=== PATIENT | female | born 1960 | race Caucasian/White ===

== ENCOUNTER 2023-02-09 15:37 | Inpatient (IN) | payer OTHER, SELFPAY ==
[2023-02-09] VITALS (12 sets, daily range): BP systolic 121–147; BP diastolic 63–88; PULSE 89–106; RESP 16–29; TEMP 37; O2SAT 93–100
--- NOTE | ~2023-02-09 | CT_ITS ---
EXAMINATION: CTA chest PE protocol DATE: 02/11/2023 11:42 CDT INDICATION: Dyspnea. Pulmonary nodules. TECHNIQUE: Computed tomographic angiography (CTA) of the chest was performed with 100 mL Omnipaque-35 0 intravenous contrast. The dose-length product was 315.46 mGy-cm. Maximum intensity projection 3D-re constructions of the aorta and other arteries were constructed by the technologist on a separate work station. COMPARISON: CT dated 02/11/2023. FINDINGS: There is mediastinal and bilateral hilar lymphadenopathy. No significant pleural or pericar dial effusion. There is a right lower lobe mass with peripheral air bronchograms measuring 3.5 x 2.2 cm, suspicious for bronchogenic carcinoma. There is a combination of emphysema and chronic interstiti al lung disease characterized by honeycombing, traction bronchiectasis, interlobular septal thickenin g and extensive patchy groundglass opacification. No endobronchial lesions. Study is technically adequate without evidence for pulmonary embolism. There is a 7 mm right upper lo be nodule, image 30. No pneumothorax. No endobronchial lesions. IMPRESSION: 1. No evidence for pulmonary embolism. 2: Right lower lobe mass measuring 3.5 x 2.2 cm, consistent with bronchogenic carcinoma until proven otherwise. Additional 7 mm right upper lobe nodule. 3: Mediastinal and hilar lymphadenopathy which may be reactive or metastatic disease. 4: Combination of emphysema and chronic chronic interstitial lung disease. Cannot exclude acute super imposed pneumonia. Reviewed, dictated and finalized at location L. IMPRESSION: 1. No evidence for pulmonary embolism. 2: Right lower lobe mass measuring 3.5 x 2.2 cm, consistent with bronchogenic c arcinoma until proven otherwise. Additional 7 mm right upper lobe nodule. 3: Mediastinal and hilar lymphadenopathy which may be reactive or metastatic di sease. 4: Combination of emphysema and chronic chronic interstitial lung disease. Pancho ot exclude acute superimposed pneumonia.
--- NOTE | ~2023-02-09 | XR_ITS ---
EXAMINATION: XR chest 1V portable Exam Date/Time: 02/09/2023 17:00 CDT HISTORY: Shortness of breath Comparison: 10/03/2007. RESULT: Lines, tubes, and devices: None. Lungs and pleura: Patchy bilateral segmental and subsegmental groundglass opacities. Increased, mode rate diffuse reticular opacities. Multiple new nodular opacities bilaterally, best seen in the left l ower lobe. Cardiomediastinal silhouette: Stable. Other: No acute osseous or upper abdominal finding. IMPRESSION: Diffuse and bilateral pulmonary opacities may represent edema or infection, overlying progressive int erstitial changes. Multiple pulmonary nodules, concerning for metastatic disease. Reviewed, dictated and finalized at location K. IMPRESSION: Diffuse and bilateral pulmonary opacities may represent edema or infection, ove rlying progressive interstitial changes. Multiple pulmonary nodules, concerning for metastatic disease.
--- NOTE | ~2023-02-09 | US_ITS ---
EXAMINATION: US venous doppler UE DATE: 02/11/2023 12:10 INDICATION: History of smoking. Evaluate for DVT. TECHNIQUE: Oquendo scale images with and without compression and Doppler images of the right and left up per extremity veins were obtained. COMPARISON: None. FINDINGS: The bilateral internal jugular vein, subclavian vein, axillary vein, brachial veins, basilic vein, ce phalic vein, radial vein, and ulnar vein are patent. IMPRESSION: 1. Patent bilateral upper extremity veins. No evidence of deep venous thrombosis. Reviewed, dictated and finalized at location L. IMPRESSION: 1. Patent bilateral upper extremity veins. No evidence of deep venous thrombosi s.
--- NOTE | ~2023-02-09 | CT_ITS ---
CT Scan of the Chest without Contrast: Clinical Indication: Pulmonary nodules on chest x-ray Technique: Contiguous sections were acquired throughout the chest without intravenous contrast. Dose reduction technique was used on this scan by utilizing automated exposure control and iterative recon struction technique. The dose-length product (DLP) was 167.74 mGy-cm. COMPARISON: 12/07/2008 Findings: Shotty mediastinal lymph nodes not frankly enlarged by size criteria. No aortic aneurysm. There is no evidence of pleural or pericardial effusion. There is extensive interstitial thickening and extensive patchy groundglass opacity throughout most o f both lungs. Findings are most consistent with diffuse chronic interstitial disease. There is a 2.9 x 2.0 cm nodular masslike lesion at the right lung base (axial image 78). Images through the upper abdomen reveal no abnormalities. Impression: 2.9 x 2.0 cm right basilar pulmonary nodule, suspicious for malignancy until proven otherwise. Tissue sampling recommended to establish a histologic diagnosis. Diffuse chronic interstitial disease with interstitial thickening, bronchiectatic change, and extensi ve groundglass opacity. Findings are probably most suggestive of NSIP. Findings are significantly pro gressed since prior exam from 2008. Reviewed, dictated and finalized at location M. Impression: 2.9 x 2.0 cm right basilar pulmonary nodule, suspicious for malignancy until pr oven otherwise. Tissue sampling recommended to establish a histologic diagnosis . Diffuse chronic interstitial disease with interstitial thickening, bronchiectat ic change, and extensive groundglass opacity. Findings are probably most sugges tive of NSIP. Findings are significantly progressed since prior exam from 2008.
--- NOTE | ~2023-02-09 | US_ITS ---
EXAMINATION:US venous doppler LE BI INDICATION:Evaluate for DVT. TECHNIQUE: Multiple grayscale, color flow and Doppler images of the right and left lower extremity de ep venous systems were obtained and reviewed. COMPARISON:No prior studies for comparison. FINDINGS: The common femoral, superficial femoral and popliteal veins demonstrate normal respiratory variation, augmentation and compressibility. Color flow is also seen within the posterior tibial, pe roneal, greater saphenous and profunda veins. IMPRESSION: 1: No lower extremity deep venous thrombosis. Reviewed, dictated and finalized at location L.
--- NOTE | 2023-02-09 15:49 | ECG_ITS ---
Measurements Intervals [place] Rate: 101 P: 32 MA: 170 QRS: -18 QRSD: 85 T: 31 QT: 339 QTc: 440 Interpretive Statements SINUS TACHYCARDIA DELAYED PRECORDIAL R/S TRANSITION VOLTAGE CRITERIA FOR LVH BASELINE WANDER- I, II, AVR, V4-V5 BORDERLINE ECG NO PREVIOUS ECG AVAILABLE FOR COMPARISON Electronically Signed On 02-10-2023 7:51:35 CDT by Tonio Mario D.O.
[2023-02-09] MEDS: IPRATROPIUM BR 0.02% INH SOLN 0.5 MG/2.5 ML VIAL INHALATION (16:52)
[2023-02-09] MEDS: LEVALBUTEROL NEB 1.25 MG/3 ML INHALATION (16:52)
--- NOTE | 2023-02-09 16:52 | ED.SOB ---
HPI - SOB/Dyspnea General Chief Complaint: Shortness of Breath/Dyspnea Stated Complaint: resp. distress History of Present Illness HPI Narrative: This is a 62-year-old female with reported history of COPD, who presents to the emergency department with shortness of breath. She states over the last week she has developed progressive dyspnea on exertion. She denies chest pain, fevers, cough or abdominal pain. Related Data Home Medications Medication Instructions Recorded Confirmed cholecalciferol (vitamin D3) 25 1,000 unit PO DAILY 11/12/19 11/11/21 mcg (1,000 unit) capsule Allergies Allergy/AdvReac Type Severity Reaction Status Date / Time guaifenesin Allergy Mild ITCHING Verified 12/02/22 13:15 levofloxacin Allergy Unknown unknown Verified 12/02/22 13:15 Quinolones Allergy Unknown unknown Verified 12/02/22 13:15 Review of Systems Review of Systems: CONSTITUTIONAL: Denies fever, chills, or sweats. ENT: Denies rhinorrhea, congestion, sore throat, or otalgia. CARDIOVASCULAR: Denies chest pain, palpitations, or edema. RESPIRATORY: Dyspnea on exertion denies cough, orthopnea. GASTROINTESTINAL: Denies abdominal pain, nausea, vomiting, or diarrhea. GENITOURINARY: Denies dysuria or hematuria. SKIN: Denies rash or itching. MUSCULOSKELETAL: Denies back pain, joint pain, or myalgia. NEUROLOGIC: Denies headache, numbness, dizziness, or weakness. PSYCHIATRIC: Denies anxiety or depression. PMFSH Past Medical History Medical History Abnormal mammogram Body mass index [BMI] 22.0-22.9, adult (01/09/16) Bronchitis Chronic cough HLD (hyperlipidemia) Other dorsalgia Personal history of nicotine dependence Unspecified asthma, uncomplicated URI, acute Vitamin D deficiency Family History Family History Mother Hypertension Asthma Social History Social History Smoking status: Never smoker Alcohol intake: never Exam Narrative: GENERAL: Well-developed, well-nourished, and in no acute distress. HEAD: Normocephalic, atraumatic. EYES: PERRLA and EOMI. ENT: Nares clear, no rhinorrhea or epistaxis. Mucous membranes moist. Oropharynx without tonsillar hypertrophy exudate or other lesions. NECK: Supple. No adenopathy or masses. No carotid bruits or JVD CHEST: Good aeration, Rales in the bilateral lung pat, the right greater than the left. No respiratory distress. No wheezes or rhonchi HEART: Tachycardic with regular rhythm. No murmur heard. Normal peripheral pulses. ABDOMEN: Soft, nontender, nondistended, normal active bowel sounds. EXTREMITIES: Normal range of motion. No edema. SKIN: Warm, dry, no rash. NEURO: No focal deficits. Alert and oriented x3. PSYCH: Normal mood and affect. Course Course Emergency Course: 16:41 - Orders delayed by EMR system failure. 17:15 - Chest x-ray consistent with pulmonary edema. Bedside ultrasound demonstrates B-lines consistent with pulmonary edema. I discussed these findings with the patient. I suspect her dyspnea on exertion is related to new onset CHF. I recommended inpatient admission, to which she voices hesitation. Will trial off oxygen and discuss further. 17:48 - Per radiology, chest x-ray is indicative of pulmonary edema versus pulmonary nodules concerning for malignancy. BNP elevated to 718. With 2 L off, the patient desatted to 85% at rest. I again discussed these findings with the patient with recommendation for admission. She voices understanding and is comfortable with the plan. Will treat with IV Lasix. 18:30 - Discsused patient with Road Roller Engineer, Dr. Owens who agrees to consult. 18:45 -Discussed patient with hospitalist ENRIKE Lobato, who accepts admission to [facility] telemetry. Vital Signs Vital signs: Vital Signs Temperature 98.6 F 02/09/23 15:34 Pulse Rate 105 H 02/09/23 15:34 Res
[2023-02-09 17:00] LABS: Basophils Absolute Auto 0.1 K/mm3 (0.0-0.1); Basophils Percent Auto 0.5 % (0.2-1.2); Eosinophils Absolute Auto 0.2 K/mm3 (0-0.3); Eosinophils Percent Auto 2.2 % (0-4.4); Hematocrit 38.3 % (37.0-47.0); Immature Granulocyte Absolute 0.04 K/mm3 (0.00-0.031); Immature Granulocyte Percent A 0.4 % (0-0.5); Lymphocytes Absolute Auto 0.93 K/mm3 (0.9-3.2); Lymphocytes Percent Auto 9.1 % (18.3-44.2); Mean Corpuscular HGB Conc 31.3 g/dl (32-36); Mean Corpuscular Hemoglobin 27.8 pg (26-34); Mean Corpuscular Volume 88.9 fl (80-100); Mean Platelet Volume 9.8 fl (7.4-10.4); Monocytes Absolute Auto 0.5 K/mm3 (0.1-0.6); Monocytes Percent Auto 4.6 % (2.6-8.5); Neutrophils Absolute Auto 8.5 K/mm3 (1.3-6.7); Neutrophils Percent Auto 83.2 % (45.5-73.1); Platelet Count Result 380 k/mm3 (150-375); Red Blood Count 4.31 M/mm3 (4.2-5.4); Red Cell Distribution Width 14.6 % (11.5-14.5); White Blood Count 10.3 K/mm3 (4.5-10.0)
[2023-02-09 17:01] LABS: INR 1.1; Prothrombin Time 14.7 Seconds (11.1-14.7)
[2023-02-09 17:12] LABS: Alanine Aminotransferase 19 U/L (6-35); Alkaline Phosphatase 136 U/L (38-126); Anion Gap 10 mmol/L (8-16); Aspartate Amino Transferase 29 U/L (14-36); Bilirubin,Total 0.8 mg/dL (0.2-1.3); Blood Urea Nitrogen 12 mg/dL (7-17); Calcium 8.4 mg/dL (8.4-10.2); Carbon Dioxide 27 mmol/L (22-30); Chloride 99 mmol/L (98-107); Estimated CRCL calculation 50 ml/min; Estimated Glomerular Filt Rate > 60; Glucose 156 mg/dL (65-110); Potassium 3.3 mmol/L (3.4-5.0); Sodium 136 mmol/L (137-145); Troponin I 0.016 ng/mL (0.000-0.034)
[2023-02-09 17:43] LABS: NT Pro B Type Natriuretic Pept 718 pg/mL (19.9-100)
[2023-02-09] MEDS: POTASSIUM CHLORIDE 20 MEQ PACKET (FOR LIQUID) 40 MEQ PO (18:06)
[2023-02-09] MEDS: FUROSEMIDE INJ 40 MG/4 ML VIAL IV PUSH (18:07)
[2023-02-09 19:06] LABS: Fractional Inspired Oxygen 21 %; HCO3 VBG 19.8 mEq/l (24.0-30.0); PO2 VBG 56.2 mmHg (35.0-45.0)
[2023-02-09 19:07] LABS: PCO2 VBG 24.4 mmHg (42.0-48.0); pH VBG 7.527 (7.300-7.400)
[2023-02-09 19:08] LABS: Device ROOM AIR
[2023-02-10] VITALS (10 sets, daily range): BP systolic 128–137; BP diastolic 68–78; PULSE 63–108; RESP 18; TEMP 36.6–37.1; O2SAT 90–96
--- NOTE | 2023-02-10 | ECHO_ITS ---
Patient Info Name: Mi Jeffers Age: 62 years : 1960 Gender: Female Ht: 60 in Wt: 125 lbs BSA: 1.56 m2 HR: 63 bpm BP: 128 / 68 mmHg Heart Rhythm: Sinus Rhythm Technical Quality: Fair Exam Date: 02/10/2023 9:24 AM Exam Location: [facility] Patient Status: Inpatient Admit Date: 02/09/2023 Staff Ordering Physician: Jaci Rahman PA-C Cash Posting Clerk: Chantel Ba RDCS Attending Provider: Rema Baker PA-C Referring Physician: Lacey NG; Exam Type: CA echo doppler w bubble study Study Info Indications - CHF Complete two-dimensional, color flow and Doppler transthoracic echocardiogram is performed with agitated saline. Contrast/Agitated Saline Contrast/Ag. Saline: Agitated Saline Amount: 20.00 ml Administered By: Adamaris Andrews RDCS Existing IV Access: Yes IV Access Condition: patent with no signs of infiltration Summary 1. Left ventricular chamber dimension is normal. 2. Left ventricular systolic function is normal, estimated at 60-65%. 3. There is mildly increased left ventricular wall thickness. 4. The left ventricular diastolic function is grade I diastolic dysfunction. 5. Right ventricular systolic function is normal. 6. Bubble study shows a few bubbles in the left heart after 5 cardiac beats, indicating possible intrapulmonary shunt. 7. There is mild tricuspid valve regurgitation. Left Ventricle Left ventricular chamber dimension is normal. Left ventricular systolic function is normal, estimated at 60-65%. There is mildly increased left ventricular wall thickness. The left ventricular diastolic function is grade I diastolic dysfunction. Right Ventricle Right ventricular chamber dimension is normal. Right ventricular systolic function is normal. Left Atria Left atrial chamber dimension is normal. Right Atria Right atrial chamber dimension is normal. Atrial Septum Bubble study shows a few bubbles in the left heart after 5 cardiac beats, indicating possible intrapulmonary shunt. Aortic Valve The aortic valve is trileaflet. There is no aortic valve stenosis. There is no aortic valve regurgitation. Pulmonic Valve The pulmonic valve is not well visualized. There is mild pulmonic regurgitation. Mitral Valve The mitral valve has normal leaflets. There is no mitral valve stenosis. There is trace mitral valve regurgitation. Tricuspid Valve There is mild tricuspid valve regurgitation. Pericardium/Pleural There is no pericardial effusion. Inferior Vena Cava Normal inferior vena cava with >50% collapse upon inspiration consistent with normal right atrial pressure, 3 mmHg. Aorta The aortic root size at the sinus of Valsalva is normal. Left Ventricular Outflow Tract Name Value Normal LVOT 2D LVOT Diameter 2.0 cm LVOT Doppler LVOT Peak Gradient 3 mmHg LVOT Mean Gradient 1 mmHg LVOT VTI 16 cm LVOT VTI/AV VTI Ratio 0.7 LVOT Stroke Volume 49 ml LVOT CO 3.5 l/min LVOT CI 2.2 l/m
--- NOTE | 2023-02-10 06:38 | PC.NURSE ---
0010 PT ADMITTED TO FLOOR. COMPUTER DOWNTIME UNTIL 0615
[2023-02-10 06:43] LABS: Basophils Percent Auto 0.2 % (0.2-1.2); Hematocrit 40.4 % (37.0-47.0); Hemoglobin 12.6 g/dL (12.0-15.0); Immature Granulocyte Absolute 0.05 K/mm3 (0.00-0.031); Immature Granulocyte Percent A 0.6 % (0-0.5); Lymphocytes Absolute Auto 0.88 K/mm3 (0.9-3.2); Lymphocytes Percent Auto 10.6 % (18.3-44.2); Mean Corpuscular HGB Conc 31.2 g/dl (32-36); Mean Corpuscular Hemoglobin 27.5 pg (26-34); Mean Corpuscular Volume 88.2 fl (80-100); Mean Platelet Volume 10.1 fl (7.4-10.4); Monocytes Absolute Auto 0.4 K/mm3 (0.1-0.6); Monocytes Percent Auto 4.6 % (2.6-8.5); Platelet Count Result 450 k/mm3 (150-375); Red Blood Count 4.58 M/mm3 (4.2-5.4); Red Cell Distribution Width 14.6 % (11.5-14.5); White Blood Count 8.3 K/mm3 (4.5-10.0)
[2023-02-10 07:11] LABS: Alanine Aminotransferase 19 U/L (6-35); Albumin Level 4.4 g/dL (3.5-5.1); Alkaline Phosphatase 145 U/L (38-126); Anion Gap 8 mmol/L (8-16); Aspartate Amino Transferase 28 U/L (14-36); Bilirubin,Total 0.7 mg/dL (0.2-1.3); Blood Urea Nitrogen 16 mg/dL (7-17); CRP 22.5 mg/dL (<1.0); Calcium 9.1 mg/dL (8.4-10.2); Carbon Dioxide 32 mmol/L (22-30); Chloride 99 mmol/L (98-107); Cholesterol 155 mg/dL (0-200); Estimated CRCL calculation 50 ml/min; Estimated Glomerular Filt Rate > 60; Glucose 163 mg/dL (65-110); HDL Direct 38 mg/dL; Magnesium 2.9 mg/dL (1.6-2.3); Potassium 4.3 mmol/L (3.4-5.0); Procalcitonin 0.4 ng/mL; Sodium 139 mmol/L (137-145); Triglycerides 93 mg/dL (<150)
[2023-02-10] MEDS: FUROSEMIDE INJ 40 MG/4 ML VIAL 20 MG IV PUSH ×2 (07:18→17:08)
[2023-02-10 07:36] LABS: LDL Cholesterol Direct 88 mg/dL
[2023-02-10] MEDS: ENOXAPARIN 40 MG/0.4 ML SYRINGE SUB-Q (07:44)
[2023-02-10 07:54] LABS: Thyroid Stimulating Hormone 0.742 uIU/mL (0.465-4.680)
[2023-02-10] MEDS: CHOLECALCIFEROL 1,000 UNITS TABLET 1000 UNITS PO (09:15)
[2023-02-10 09:26] LABS: Troponin I < 0.012 ng/mL (0.000-0.034)
--- NOTE | 2023-02-10 09:35 | PM.CNCAR ---
Assessment and Plan Assessment and plan (1) New onset of congestive heart failure: Code(s): I50.9 - Heart failure, unspecified Status: Acute Assessment and Plan: Has heart failure symptoms. Continue with intermittent IV Lasix for now. Please monitor strict I/Os. Echocardiogram ordered, will follow up on results. (2) Pulmonary nodule: Code(s): R91.1 - Solitary pulmonary nodule Status: Acute Assessment and Plan: CXR on admission showing multiple pulmonary nodules, concerning for metastatic disease (!!!) per Radiology read. Management as per primary team. History of Present Illness History of Present Illness Consult date/time: 02/10/23 09:35 Requesting physician: Roland Eaton MD Consult reason: congestive heart failure Reason For Visit: New Onset CHF Narrative: We are consulted for congestive heart failure. This is a 62-year-old female with hyperlipidemia, reported history of COPD, former tobacco use who presented with shortness of breath that has been progressing. Her symptoms began last or Wednesday. Shortness of breath occurs with exertion. No chest pain. 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 Former smoker - quit smoking 2.5 years ago. Used to smoke 1.5PPD for about 40 years. No prior cardiac history. Has an aunt that has heart failure, atrial fibrillation. Troponins are negative x 2. BNP elevated at 718. CXR shows diffuse bilateral pulmonary opacities which may represent edema or infection, with overlying progressive interstitial changes. Multiple pulmonary nodules, concerning for metastatic disease. Patient started on IV Lasix on admission. Currently requiring supplemental oxygen via nasal cannula. Feeling better since admission. Review of Systems Review of Systems: All systems reviewed & are unremarkable except as noted in HPI and below (HPI) [facility] Past Medical History Medical History Abnormal mammogram Body mass index [BMI] 22.0-22.9, adult (01/09/16) Bronchitis Chronic cough HLD (hyperlipidemia) Other dorsalgia Personal history of nicotine dependence Unspecified asthma, uncomplicated URI, acute Vitamin D deficiency Family History Family History Mother Hypertension Asthma Social History Social History Smoking status: Former smoker Alcohol intake: never Substance use: never Substance use type: does not use Lack of Transportation: No Lack of Food: Never True Current Housing: I Have Housing Concerned About Future Housing: No Difficulty Paying Gas/Electric Bills: No Difficulty Paying for Meds: No Currently Unemployed: No Education: High School Diploma/GED Difficulty w/ Childcare or Family Care: No Spiritual care concerns: No Meds Home Medications and Allergies Home Medications Medication Instructions Recorded Confirmed Type cholecalciferol (vitamin D3) 25 1,000 unit PO DAILY 11/12/19 02/10/23 History mcg (1,000 unit) capsule tramadol 50 mg tablet 50 mg PO Q6H PRN pain #30 tabs 12/03/22 02/10/23 Rx sertraline 50 mg tablet 50 mg PO QHS 02/10/23 02/10/23 History Allergies Allergy/AdvReac Type Severity Reaction Status Date / Time guaifenesin Allergy Mild ITCHING Verified 12/02/22 13:15 levofloxacin Allergy Unknown unknown Verified 12/02/22 13:15 Quinolones Allergy Unknown unknown Verified 12/02/22 13:15 Vital Signs Vital Signs - 24 hr 02/09/23 15:34 02/09/23 16:45 02/09/23 15:40 Temperature 37.0 C Pulse Rate 105 H 99 Respiratory Rate 22 H 24 H Blood Pressure 126/72 Pulse Oximetry 95 95 Oxygen Delivery Nasal Cannula Nasal Cannula Oxygen Flow Rate 2 2 02/09/23 16:04 02/09/23 16:31 02/09/23 16:57 Temperature Pulse Rate 103 H 98 94 Respiratory Rate 25 H 16 23 H Blood Pre
--- NOTE | 2023-02-10 14:59 | PM.IMPN ---
Progress Note: A&P Assessment and Plan (1) New onset of congestive heart failure: Code(s): I50.9 - Heart failure, unspecified Status: Acute Assessment and Plan: Patient presented with progressive dyspnea on lesser and lesser exertion. BNP only mildly elevated at 700 Appreciate cardiology consultation Continue with diuresis Echocardiogram pending Monitor intake and output and daily weights (2) Hypoxia: Code(s): R09.02 - Hypoxemia Status: Acute Assessment and Plan: Noted to be hypoxic at 85% on presentation Currently requiring 2 L supplemental O2 Maintaining adequate O2 sats on 2 L supplemental O2 Wean oxygen as tolerated (3) Pulmonary nodule: Code(s): R91.1 - Solitary pulmonary nodule Status: Acute Assessment and Plan: CXR showed multiple pulmonary nodules concerning for metastatic disease Will follow-up with chest CT Consider pulmonology versus oncology consultation based on results (4) COPD (chronic obstructive pulmonary disease): Code(s): J44.9 - Chronic obstructive pulmonary disease, unspecified Status: Acute Assessment and Plan: Noted in EMR per patient's PCP Not maintained on any inhalers No acute exacerbation at this time Subjective Date/time seen: 02/10/23 14:59 Interval history: Date of service: 02/10/2023 Mi Jeffers is a 62-year-old female with a history of tobacco use, asthma, vitamin-D deficiency who is seen in follow-up for suspected CHF. Patient states that she is beginning to feel better today. Her shortness of breath has improved and she is able to tolerate more activity. She continues to endorse mild dyspnea on exertion but states that she is moving in the right direction. She denies any swelling of her lower extremities. She denies chest pain or palpitations. She denies cough. Denies sinus congestion. Review of Systems Review of Systems: All systems reviewed & are unremarkable except as noted in HPI and below Exam Narrative: General: Thin, well-appearing 62-year-old female, sitting up in bed, comfortable, NARD Neuro: awake, alert and oriented x4, speech clear, no focal neuro deficits noted HEENMT: normocephalic, atraumatic, EOMI, sclerae anicteric, moist oral mucosa Respiratory: clear to auscultation bilaterally, nonlabored breathing Cardio: regular rate, regular rhythm with S1-S2 Abdomen: nondistended, normoactive bowel sounds, soft, nontender to palpation Extremities: no edema, erythema, or tenderness to palpation, DP pulses 2+ bilaterally Skin: no rashes or lesions, warm and dry Psych: appropriate mood and affect, judgment and insight intact Objective Data Vital Signs Vital Signs: Vital Signs - 24 hr 02/09/23 15:34 02/09/23 16:45 02/09/23 15:40 Temperature 98.6 F Pulse Rate 105 H 99 Respiratory Rate 22 H 24 H Blood Pressure 126/72 Pulse Oximetry 95 95 Oxygen Delivery Nasal Cannula Nasal Cannula Oxygen Flow Rate 2 2 02/09/23 16:04 02/09/23 16:31 02/09/23 16:57 Temperature Pulse Rate 103 H 98 94 Respiratory Rate 25 H 16 23 H Blood Pressure 126/63 134/75 124/65 Pulse Oximetry 98 98 99 Oxygen Delivery Oxygen Flow Rate 02/09/23 17:01 02/09/23 17:16 02/09/23 18:08 Temperature Pulse Rate 100 97 106 H Respiratory Rate 24 H 20 22 H Blood Pressure 136/66 121/70 146/71 H Pulse Oximetry 100 96 96 Oxygen Delivery Oxygen Flow Rate 02/09/23 18:16 02/09/23 18:31 02/09/23 19:51 Temperature Pulse Rate 104 H 98 89 Respiratory Rate 16 29 H 24 H Blood Pressure 147/80 H 127/67 133/88 Pulse Oximetry 93 96 96 Oxygen Delivery Oxygen Flow Rate 02/10/23 00:00 02/10/23 04:00 02/10/23 00:35 Temperature 97.8 F Pulse Rate 85 63 81 Respiratory Rate 18 Blood Pressure 128/68 Pulse Oximetry 90 Oxygen Delivery Oxygen Flow Rate 02/10/23 01:00 02/10/23 08:00 02/10/23 08:00 Temperature Pulse Rate 78
--- NOTE | 2023-02-10 15:42 | PM.IMHP ---
H&P: HPI History of Present Illness Date/Time: 02/09/23 19:30 Chief Complaint: Shortness of breath. Narrative: This is a very pleasant 62-year-old female, former smoker, who presented to the emergency department from home for evaluation of shortness of breath. 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 Approximately 1 week ago she woke up feeling weak and she noticed that she was becoming fatigued and short of breath with everyday activities. For instance when she was trying to bathe her son she had to stop and rest several times due to shortness of breath and weakness. About the same time she developed nasal congestion she thought perhaps she had an upper respiratory infection and she has been taking Mucinex which has helped her sinus symptoms.? She continues to have the weakness and shortness of breath however. Her mom made her come to the ER today because her symptoms were not getting better. She does have an occasional cough but has been nonproductive. She denies fever, chills, and sweats. She has not had chest pain or discomfort, pleuritic pain, or palpitations. She denies paroxysmal nocturnal dyspnea, orthopnea, and lower extremity edema. Appetite has been good and she denies nausea and vomiting.? Weight has remained stable. No syncope or near syncope. Chest x-ray done in the ED shows diffuse pulmonary infiltrates and Juanpablo B lines suggestive of congestive heart failure. She was given a dose of IV Lasix and she is being admitted in this setting for close monitoring, further evaluation, and Cardiology consultation.? Review of Systems Review of Systems: All systems reviewed & are unremarkable except as noted in HPI and below PMFSH Past Medical History Medical History Bronchitis Hyperlipidemia Personal history of nicotine dependence Vitamin D deficiency Surgical History Surgical History History of appendectomy History of hysterectomy History of tubal ligation Family History Family History Mother Hypertension Asthma Social History Social History (Updated 02/11/23 @ 01:04 by Jaci Rahman PA-C) Social History: Surrogate medical decision maker: Whitney Pagan, mother. Code status: Full code. Smoking status: Former smoker Alcohol intake: never Substance use: never Substance use type: does not use Lack of Transportation: No Lack of Food: Never True Current Housing: I Have Housing Concerned About Future Housing: No Difficulty Paying Gas/Electric Bills: No Difficulty Paying for Meds: No Currently Unemployed: No Education: High School Diploma/GED Difficulty w/ Childcare or Family Care: No Spiritual care concerns: No Meds Home Medications and Allergies Home Medications Medication Instructions Recorded Confirmed Type cholecalciferol (vitamin D3) 25 1,000 unit PO DAILY 11/12/19 02/10/23 History mcg (1,000 unit) capsule tramadol 50 mg tablet 50 mg PO Q6H PRN pain #30 tabs 12/03/22 02/10/23 Rx sertraline 50 mg tablet 50 mg PO QHS 02/10/23 02/10/23 History Allergies Allergy/AdvReac Type Severity Reaction Status Date / Time guaifenesin Allergy Mild ITCHING Verified 12/02/22 13:15 levofloxacin Allergy Unknown unknown Verified 12/02/22 13:15 Quinolones Allergy Unknown unknown Verified 12/02/22 13:15 Vital Signs Vital Signs - 24 hr 02/09/23 16:45 02/09/23 16:04 02/09/23 16:31 Temperature Pulse Rate 99 103 H 98 Respiratory Rate 24 H 25 H 16 Blood Pressure 126/63 134/75 Pulse Oximetry 98 98 Oxygen Delivery Oxygen Flow Rate 02/09/23 16:57 02/09/23 17:01 02/09/23 17:16 Temperature Pulse Rate 94 100 97 Respiratory Rate 23 H 24 H 20 Blood Pressure 124/65 136/66 121/70 Pulse Oximetry 99 100 96 Oxygen Delivery Oxygen Flow Rate 02/09/23 18:08
[2023-02-10] MEDS: SERTRALINE HCL 50 MG TABLET PO (20:46)
[2023-02-11] VITALS (11 sets, daily range): BP systolic 111–114; BP diastolic 58–68; PULSE 79–124; RESP 18–20; TEMP 36.6–37.1; O2SAT 85–95
[2023-02-11] MEDS: FUROSEMIDE INJ 40 MG/4 ML VIAL 20 MG IV PUSH (05:49)
[2023-02-11 06:02] LABS: Hematocrit 41.8 % (37.0-47.0); Hemoglobin 12.7 g/dL (12.0-15.0); Mean Corpuscular HGB Conc 30.4 g/dl (32-36); Mean Corpuscular Hemoglobin 27.2 pg (26-34); Mean Corpuscular Volume 89.5 fl (80-100); Mean Platelet Volume 9.6 fl (7.4-10.4); Platelet Count Result 459 k/mm3 (150-375); Red Blood Count 4.67 M/mm3 (4.2-5.4); White Blood Count 12.4 K/mm3 (4.5-10.0)
[2023-02-11 06:14] LABS: Anion Gap 9 mmol/L (8-16); Blood Urea Nitrogen 31 mg/dL (7-17); Calcium 8.6 mg/dL (8.4-10.2); Carbon Dioxide 31 mmol/L (22-30); Chloride 98 mmol/L (98-107); Estimated CRCL calculation 44 ml/min; Estimated Glomerular Filt Rate > 60; Glucose 120 mg/dL (65-110); Potassium 4.1 mmol/L (3.4-5.0); Sodium 138 mmol/L (137-145)
[2023-02-11] MEDS: ENOXAPARIN 40 MG/0.4 ML SYRINGE SUB-Q (08:54)
[2023-02-11] MEDS: CHOLECALCIFEROL 1,000 UNITS TABLET 1000 UNITS PO (08:54)
[2023-02-11 10:19] LABS: Creatine Kinase 55 U/L (30-135)
[2023-02-11 10:24] LABS: CRP 8.2 mg/dL (<1.0)
--- NOTE | 2023-02-11 10:49 | PM.PNCARD ---
Progress Note: A&P Assessment and Plan (1) Dyspnea on exertion: Code(s): R06.09 - Other forms of dyspnea Status: Acute (2) Hypoxia: Code(s): R09.02 - Hypoxemia Status: Acute (3) New onset of congestive heart failure: Code(s): I50.9 - Heart failure, unspecified Status: Acute Plan Echocardiogram shows preserved LVEF, grade 1 diastolic dysfunction, possible intrapulmonary shunt on bubble study, mild TR. Will switch IV Lasix to PO today. Chest CT showing 2.9cm x 2.0cm right basilar pulmonary nodule, diffuse chronic interstitial disease with interstitial thickening, bronchiectatic change, and extensive groundglass opacities. Appears to be NSIP. Pulmonary has been consulted. At this time, no further cardiac recommendations. We will sign off. Please call us back if needed. Subjective Date/time seen: 02/11/23 10:49 Interval history: Reason for visit: Acute hypoxic respiratory failure, congestive heart failure HPI: We are consulted for congestive heart failure. This is a 62-year-old female with hyperlipidemia, reported history of COPD, former tobacco use who presented with shortness of breath that has been progressing. Her symptoms began last or Wednesday. Shortness of breath occurs with exertion. No chest pain. 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 Former smoker - quit smoking 2.5 years ago. Used to smoke 1.5PPD for about 40 years. No prior cardiac history. Has an aunt that has heart failure, atrial fibrillation. Troponins are negative x 2. BNP elevated at 718. CXR shows diffuse bilateral pulmonary opacities which may represent edema or infection, with overlying progressive interstitial changes. Multiple pulmonary nodules, concerning for metastatic disease. Patient started on IV Lasix on admission. Currently requiring supplemental oxygen via nasal cannula. Feeling better since admission. Date of service 02/11: Feeling much better now. No shortness of breath. Review of Systems Review of Systems: 8 point ROS obtained. Negative, unless stated in HPI. Exam Const: General: comfortable and no acute distress HENMT: Mouth: Yes moist mucous membranes Eyes: General: appearance normal, both eyes and all related structures Sclera: sclerae normal Neck: Neck: supple Resp: Effort & Inspection: normal respiratory effort Auscultation: diminished lung sounds Other: On supplemental oxygen via nasal cannula Cardio: Rate: regular rate Rhythm: regular rhythm Heart sounds: no murmurs GI: GI Palp: Yes Soft to palpation and No Tenderness to palpation present (GI) Skin: General skin exam: normal color Neuro: Speech: normal speech Extrem: General: normal to inspection Psych: Mental Status: mental status grossly normal Affect: normal affect Objective Data Vital Signs Vital Signs: Vital Signs - 24 hr 02/10/23 12:00 02/10/23 14:00 02/10/23 16:00 Temperature 37.1 C Pulse Rate 99 93 108 H Respiratory Rate 18 Blood Pressure 135/77 Pulse Oximetry 93 Oxygen Delivery Oxygen Flow Rate 02/10/23 21:07 02/10/23 20:00 02/10/23 20:00 Temperature 36.8 C Pulse Rate 87 89 Respiratory Rate 18 Blood Pressure 137/78 Pulse Oximetry 93 Oxygen Delivery Nasal Cannula Oxygen Flow Rate 2 02/11/23 00:00 02/11/23 04:00 02/11/23 05:02 Temperature 36.6 C Pulse Rate 88 86 88 Respiratory Rate 18 Blood Pressure 114/58 L Pulse Oximetry 93 Oxygen Delivery Oxygen Flow Rate 02/11/23 08:00 Temperature Pulse Rate Respiratory Rate Blood Pressure Pulse Oximetry 93 Oxygen Delivery Nasal Cannula Oxygen Flow Rate 2 Intake/Output Intake/Output: Intake & Output 02/08/23 02/09/23 02/10/23 02/11/23 23:59 23:59 23:59 23:59 Intake Total 120 370 Output Total 600 600 Balance -480 -230 Meds/Results Medications: Active Medications Generic Name Dose Route St
[2023-02-11 11:18] LABS: Rheumatoid Factor 18.8 IU/ML (<12)
--- NOTE | 2023-02-11 12:42 | PM.CNPUL ---
Assessment and Plan Assessment and plan (1) Pulmonary nodules: Code(s): R91.8 - Other nonspecific abnormal finding of lung field Status: Acute Assessment and Plan: CT scan of the chest shows a 3.5 x 2.2 cm right lower lobe mass and a 7 mm right upper lobe nodule. I reviewed this CT scan with the radiologist and there is a pulmonary artery and an airway that are undistorted that go through the center of this mass. At this time this likely represents a pneumonia or fluid filled portion of the airway. Recommend treat for possible pneumonia and repeat CT scan in 2-[address] the patient on levofloxacin 750 mg p.o. q.day times 14 days. (2) Interstitial lung disease: Code(s): J84.9 - Interstitial pulmonary disease, unspecified Status: Acute Assessment and Plan: Patient with ground-glass infiltrates and minimal honeycombing in the bases dating back to 12/01/2007. repeat imaging on 12/07/2008 demonstrates continued patchy bilateral interstitial changes with ground-glass opacities and some honeycomb -cystic lesions without significant change. CT scan on 02/10/2023 demonstrated patchy areas of ground-glass infiltrates and reticular interstitial infiltrates throughout all lung pat with superimposed areas of honeycombing with a peripheral and basilar predominance which has progressed from 2008. 1 radiologist felt this was NSIP and 1 thought it was probable UIP. Regarding her intermittent dyspnea on exertion, clinically the patient has been stable up until 1 week prior to admission when she developed dyspnea on exertion. She also has oxygen requirements that have improved with diuretics. CT angiogram is negative, upper lower extremity Dopplers are negative for DVT. Regarding etiologies for his interstitial lung disease I will send serologies. I will order a JOSEPHINE screen that includes 11 different auto antibodies, an ANCA screen, a rheumatoid factor, anti CCP antibody, hypersensitivity pneumonitis panel, a CPK, an aldolase level, and myomarker 3 plus profile. I will do a home O2 assessment to determine oxygen needs at rest and with ambulation. Report from PFTs as an outpatient and patient is scheduled to have a CT scan of the chest in 2-3 months to follow her right lung mass. Patient has no evidence of wheezing and at this time I will not prescribe any inhaled pulmonary medications. From a pulmonary perspective patient can be discharged home on these pulmonary medications: Levofloxacin 750 mg p.o. q.day times 14 days. Oxygen at rest and with ambulation per home O2 assessment. Follow-up in the Pulmonary Clinic in 3-4 weeks. The phone number has been relayed to the patient and I have informed our program director/traffic director. Discussed with Rema Baker History of Present Illness History of Present Illness Consult date: 02/11/23 Chief complaint: New Onset CHF Narrative: 02/11/2023: This is a new pulmonary consult for interstitial lung disease and pulmonary nodule. 62-year-old with a history of chronic cough, clubbing since age 33, history of tobacco, chronic alveolar and interstitial infiltrates on CT scan from 12/07/2008 and 12/01/2007 presented to [facility] on 02/09/2023 with episodes of shortness of breath. Patient states she was healthy as a young child in through her teenage years. In her 30s she started to have episodes of bronchitis with cough and wheezing requiring inhalers, antibiotics and prednisone 1 time every 3-4 years and her last episode was approximately 10 years ago. In her 38 she started having shortness of breath with walking but no rest shortness of breath. She had a chronic cough from her 30s on word and noticed that her fingers were large at about age 33. Patient smoked 1 pack of cigarettes a day from age [age] for a total of 47 pack years. She was exposed to secondhand smoke through her until 2014 and was exposed to secondhand smoke from both parents
--- NOTE | 2023-02-11 13:27 | PM.IMPN ---
Progress Note: A&P Assessment and Plan (1) New onset of congestive heart failure: Code(s): I50.9 - Heart failure, unspecified Status: Acute Assessment and Plan: Patient presented with progressive dyspnea on lesser and lesser exertion. BNP only mildly elevated at 700 Appreciate cardiology consultation Continue with diuresis Echocardiogram pending Monitor intake and output and daily weights (2) Hypoxia: Code(s): R09.02 - Hypoxemia Status: Acute Assessment and Plan: Noted to be hypoxic at 85% on presentation Currently requiring 2 L supplemental O2 Maintaining adequate O2 sats on 2 L supplemental O2 Wean oxygen as tolerated (3) Pulmonary nodule: Code(s): R91.1 - Solitary pulmonary nodule Status: Acute Assessment and Plan: CXR showed multiple pulmonary nodules concerning for metastatic disease Will follow-up with chest CT Consider pulmonology versus oncology consultation based on results (4) COPD (chronic obstructive pulmonary disease): Code(s): J44.9 - Chronic obstructive pulmonary disease, unspecified Status: Acute Assessment and Plan: Noted in EMR per patient's PCP Not maintained on any inhalers No acute exacerbation at this time Subjective Date/time seen: 02/11/23 13:27 Interval history: Date of service: 02/10/2023 Mi Jeffers is a 62-year-old female with a history of tobacco use, asthma, vitamin-D deficiency who is seen in follow-up for suspected CHF. Patient states that she is beginning to feel better today. Her shortness of breath has improved and she is able to tolerate more activity. She continues to endorse mild dyspnea on exertion but states that she is moving in the right direction. She denies any swelling of her lower extremities. She denies chest pain or palpitations. She denies cough. Denies sinus congestion. Review of Systems Review of Systems: All systems reviewed & are unremarkable except as noted in HPI and below Exam Narrative: General: Thin, well-appearing 62-year-old female, sitting up in bed, comfortable, NARD Neuro: awake, alert and oriented x4, speech clear, no focal neuro deficits noted HEENMT: normocephalic, atraumatic, EOMI, sclerae anicteric, moist oral mucosa Respiratory: clear to auscultation bilaterally, nonlabored breathing Cardio: regular rate, regular rhythm with S1-S2 Abdomen: nondistended, normoactive bowel sounds, soft, nontender to palpation Extremities: no edema, erythema, or tenderness to palpation, DP pulses 2+ bilaterally Skin: no rashes or lesions, warm and dry Psych: appropriate mood and affect, judgment and insight intact Objective Data Vital Signs Vital Signs: Vital Signs - 24 hr 02/10/23 14:00 02/10/23 16:00 02/10/23 21:07 Temperature 98.8 F 98.3 F Pulse Rate 93 108 H 87 Respiratory Rate 18 18 Blood Pressure 135/77 137/78 Pulse Oximetry 93 93 Oxygen Delivery Oxygen Flow Rate 02/10/23 20:00 02/10/23 20:00 02/11/23 00:00 Temperature Pulse Rate 89 88 Respiratory Rate Blood Pressure Pulse Oximetry Oxygen Delivery Nasal Cannula Oxygen Flow Rate 2 02/11/23 04:00 02/11/23 05:02 02/11/23 08:00 Temperature 97.9 F Pulse Rate 86 88 Respiratory Rate 18 Blood Pressure 114/58 L Pulse Oximetry 93 93 Oxygen Delivery Nasal Cannula Oxygen Flow Rate 2 Intake/Output Intake/Output: Intake & Output 02/08/23 02/09/23 02/10/23 02/11/23 23:59 23:59 23:59 23:59 Intake Total 120 370 Output Total 600 600 Balance -480 -230 Meds/Results Medications: Active Medications Generic Name Dose Route Start Last Admin Trade Name Freq PRN Reason Stop Dose Admin Acetaminophen 650 mg 02/10/23 08:06 Acetaminophen 325 Mg Tablet PO Q4H PRN Pain 1-5 Enoxaparin Sodium 40 mg 02/10/23 09:00 02/11/23 08:54 Enoxaparin 40 Mg/0.4 Ml Syringe SUB-Q 40 mg DAILY JOELLE Administrati
[2023-02-11] MEDS: ACETAMINOPHEN 325 MG TABLET 650 MG PO (13:50)
--- NOTE | 2023-02-11 16:16 | PM.DS ---
DS: Admitting Diagnosis Discharge Date 02/11/23 Admitting Diagnosis Hypoxia DS: Discharge Diagnosis Discharge Diagnosis (1) New onset of congestive heart failure: Code(s): I50.9 - Heart failure, unspecified Status: Acute Assessment and Plan: Patient presented with progressive dyspnea on lesser and lesser exertion.? BNP only mildly elevated at 700. Echocardiogram completed which showed preserved left ventricular function, grade 1 diastolic dysfunction. She initially received IV Lasix with symptomatic improvement. She will continue Lasix 20 mg p.o. daily and follow-up with cardiology as an outpatient. CHF Education provided including heart healthy diet (2) Hypoxia: Code(s): R09.02 - Hypoxemia Status: Acute Assessment and Plan: Noted to be hypoxic at 85% on presentation. Patient required up to 2 L supplemental O2 during admission at rest. CTA negative for PE and venous Dopplers negative for DVT. home O2 eval completed at time of discharge and patient requires 2 L at rest and 3 L with activity. She will continue to follow-up with pulmonology for PFTs (3) Pulmonary nodule: Code(s): R91.1 - Solitary pulmonary nodule Status: Acute Assessment and Plan: CXR showed multiple pulmonary nodules concerning for metastatic disease. Follow-up chest CT showed right basilar pulmonary nodule suspicious for malignancy until proven otherwise with recommendations for tissue sampling. Patient was seen in consultation by pulmonology. Initially declined further evaluation, stating she would not wish to undergo any further treatment or biopsy. Imaging was reviewed by Dr. Oakes pulmonology and radiology and findings felt to be more suspicious for pneumonia and less likely malignancy. Plan is to treat for pneumonia with cefdinir 300 mg b.i.d. times 14 days and have follow-up chest CT as an outpatient. (4) Interstitial lung disease: Code(s): J84.9 - Interstitial pulmonary disease, unspecified Status: Acute Assessment and Plan: Seen in consultation by pulmonology. Will proceed with outpatient follow-up for pulmonary function testing. No treatment recommended at this time. DS: Summary Hospital Course Hospital Course: Date of admission 02/09/23 Date of discharge: 02/11/2023 Mi Jeffers is a 62-year-old female with a history of tobacco use, asthma, vitamin-D deficiency who presented to the emergency department on 02/09/2023 complaints progressive dyspnea on exertion. On presentation to the ED, she was mildly tachypneic and tachycardic, hypoxic 85% and placed on 2 L supplemental O2. The patient was admitted to the hospitalist service for further evaluation management seen in consultation by cardiology and pulmonology. Please see above for further details. Patient was diuresed and symptomatic improvement. She does require home supplemental oxygen which was arranged. She was evaluated by pulmonology for interstitial lung disease and pulmonary nodule. She will begin a course of cefdinir for 2 weeks and have a repeat CT scan for evaluation of pulmonary nodule following this. She will follow-up with pulmonology as an outpatient for PFTs. Patient was feeling much improved was eager for discharge home. Discussed with the patient worrisome signs and symptoms for which to return and she was educated on her medications. She was discharged in hemodynamically stable condition on 02/11/23. Time Spent with Patient Time attestation: Total time spent providing and/or coordinating discharge services: 45 minute Time spent: Greater than 30 minutes Exam Narrative: General:? Thin, well-appearing 62-year-old female, sitting up in bed, comfortable, NARD Neuro: awake, alert and oriented x4, speech clear, no focal neuro deficits noted HEENMT:? normocephalic, atraumatic, EOMI, sclerae anicteric, moist oral mucosa Respiratory: clear to auscultation bilaterally, nonlabored breathing Card
--- NOTE | 2023-02-11 16:18 | HOMEO2EVAL ---
Evaluation was performed at [facility] Home Oxygen Evaluation RC: Home Oxygen (O2) Evaluation Start: 02/11/23 13:31 Freq: ONCE Status: Active Protocol: RPE Activity Type Activity Date Activity User E-sign Co-sign Detail Recorded Client Recorded Date Recorded By Document 02/11/23 15:45 [email or web address] [email or web address] 02/11/23 16:18 ARJUN Document 02/11/23 15:46 [email or web address] [email or web address] 02/11/23 16:18 ARJUN Document 02/11/23 15:50 ARJUN [email or web address] 02/11/23 16:18 ARJUN Document 02/11/23 15:55 ARJUN [email or web address] 02/11/23 16:18 ARJUN Document 02/11/23 16:00 ARJUN [email or web address] 02/11/23 16:18 ARJUN 02/11/23 02/11/23 02/11/23 15:45 15:46 15:50 Home O2 Evaluation [Oxygen] -Test Phase Resting Resting Exercise -Oxygen Delivery Room Air Nasal Cannula Nasal Cannula -Oxygen Flow Rate (L/min) 2 2 [Pulse Oximetry] -Pulse Oximetry (90-100 %) 85 L 90 87 L [Pulse Rate] -Pulse Rate (60-100 beats/min) 101 H 122 H [Comments] -Home Oxygen Evaluation Comments [Charges] -Treatment Charges O2 Evaluation - Inpatient 02/11/23 02/11/23 15:55 16:00 Home O2 Evaluation [Oxygen] -Test Phase Exercise Resting -Oxygen Delivery Nasal Cannula Nasal Cannula -Oxygen Flow Rate (L/min) 3 2 [Pulse Oximetry] -Pulse Oximetry (90-100 %) 89 L 90 [Pulse Rate] -Pulse Rate (60-100 beats/min) 124 H 109 H [Comments] -Home Oxygen Evaluation Comments PT REQUIRES 2 L AT REST AND 3 L WITH ACTIVITY [Charges] -Treatment Charges
[2023-02-17 13:22] LABS: Alpha-1-Antitrypsin, QN >300 mg/dL (83-199)
[2023-02-17 17:59] LABS: ANA Cascade Screen Positive (Negative)
[2023-02-17 20:51] LABS: Chromatin (Nucleosomal) Ab <1.0; RNP Antibody 2.6; Sm Antibody <1.0; Sm/RNP Antibody <1.0
[2023-02-18 12:57] LABS: Anti Cyclic Citrullinated Pept >250 Units (<20)
[2023-02-18 13:20] LABS: Aldolase 7.1 U/L (<=8.1)
[2023-02-18 14:15] LABS: ANCA Screen Negative (Negative)
== END 2023-02-11 17:30 | disposition home or self-care (01) | DRG 291 ==
LOC: ANHED 19:00 → ANH3MEDSUR 21:01 → ANH2MED 02-10 06:50 → ANH3MEDSUR 02-12 11:39
PROVIDERS: Internal Medicine Pulmonary Disease; Admitting Provider Internal Medicine; Emergency Provider Preventive Medicine Aerospace Medicine; PCP Emergency Medicine; Visit Provider Physician Assistant
DX: I50.31 Acute diastolic (congestive) heart failure (principal); J18.9 Pneumonia, unspecified organism; J96.01 Acute respiratory failure with hypoxia; E55.9 Vitamin D deficiency, unspecified; J45.909 Unspecified asthma, uncomplicated; R91.8 Other nonspecific abnormal finding of lung field; E78.5 Hyperlipidemia, unspecified; Z87.891 Personal history of nicotine dependence; Z90.49 Acquired absence of other specified parts of digestive tract; Z90.710 Acquired absence of both cervix and uterus
CPT/HCPCS: 36415; 71045; 71250; 71275; 80048; 80053; 80061; 82085; 82103; 82104; 82550; 82803; 83735; 83880; 84145; 84443; 84484; 85025; 85027; 85380; 85610; 86036; 86038; 86140; 86200; 86331; 86430; 86606; 86609; 93005; 93306; 93970; 94618; 94640; 96374; 96375; 99285; A9270; J1650; J1940; Q9967

== ENCOUNTER 2023-03-18 16:05 | Inpatient (IN) | payer OTHER, SELFPAY ==
[2023-03-18] VITALS (19 sets, daily range): BP systolic 95–126; BP diastolic 47–77; PULSE 91–109; RESP 20–33; TEMP 36.3–36.6; O2SAT 64–100; BMI 24.0
--- NOTE | ~2023-03-18 | XR_ITS ---
EXAMINATION: XR chest 1V portable DATE: 03/18/2023 17:01 INDICATION: Shortness of breath. TECHNIQUE: A single frontal view of the chest was obtained. COMPARISON: Chest single view 02/09/2023, chest CT 02/11/2023 FINDINGS: There are airspace and interstitial opacities throughout the lungs bilaterally. No pleural effusion or pneumothorax. The heart size is normal. IMPRESSION: 1. Stable diffuse lung disease, consistent with chronic interstitial lung disease. Superimposed pulmo nary edema or pneumonia cannot be excluded. Reviewed, dictated and finalized at location A. IMPRESSION: 1. Stable diffuse lung disease, consistent with chronic interstitial lung disea se. Superimposed pulmonary edema or pneumonia cannot be excluded.
--- NOTE | ~2023-03-18 | XR_ITS ---
XR chest 1V portable DATE: 03/20/2023 05:33 INDICATION: Shortness of breath TECHNIQUE: Portable upright AP chest on 03/20/2023 at 0524 hours COMPARISON: 03/19/2023 CTA chest 03/18/2023 portable AP chest FINDINGS: There are persistent severe infiltrates throughout both lungs except for relative sparing o f the apices. 30 B-lines are noted. No pleural effusion or pneumothorax is evident. Heart size is not optimally evaluated on AP projection because of magnification. Aortic arch calcific ation. IMPRESSION: Persistent diffuse severe bilateral pulmonary infiltrates and Juanpablo B-lines. Diffuse int erstitial lung disease may be present. Superimposed pulmonary edema or pneumonia cannot be excluded. Reviewed, dictated and finalized at location A. IMPRESSION: Persistent diffuse severe bilateral pulmonary infiltrates and Kerle y B-lines. Diffuse interstitial lung disease may be present. Superimposed pulmo nary edema or pneumonia cannot be excluded.
--- NOTE | ~2023-03-18 | XR_ITS ---
Portable chest x-ray Comparison: 03/20/2023 Clinical History: Shortness of breath Findings: Diffuse chronic interstitial disease of the lungs is unchanged. No pleural effusion or pne umothorax. Cardiomediastinal silhouette is stable. Bones and soft tissues are unremarkable. Impression: Stable diffuse interstitial disease. Correlate for chronic interstitial disease versus possible super imposed acute etiology such as pulmonary edema or infection. Reviewed, dictated and finalized at location . Impression: Stable diffuse interstitial disease. Correlate for chronic interstitial disease versus possible superimposed acute etiology such as pulmonary edema or infecti on.
--- NOTE | ~2023-03-18 | CT_ITS ---
EXAMINATION: CTA chest PE protocol DATE: 03/19/2023 10:21 CDT INDICATION: Dyspnea TECHNIQUE: Computed tomographic angiography (CTA) of the chest was performed with 100 mL Omnipaque-35 0 intravenous contrast. The dose-length product was 209.41 mGy-cm. Maximum intensity projection 3D-re constructions of the aorta and other arteries were constructed by the technologist on a separate work station. Automated exposure control and iterative reconstruction technique were employed. COMPARISON: CT dated 02/11/2023. FINDINGS: Study is technically adequate without evidence for pulmonary embolism. There is extensive m ediastinal lymphadenopathy. Small left pleural effusion. Significant progression of extensive consoli dation throughout all lobes of the lungs. There is honeycombing with chronic interstitial lung diseas e in the upper lobes peripherally. No pneumothorax. No endobronchial lesions. Previously described ma ss in the right lower lobe is obscured by consolidation. IMPRESSION: 1. No evidence for pulmonary embolism. 2: Extensive patchy bilateral airspace consolidation which has progressed/developed since prior exami nation, consistent with pneumonia. Edema less favored. 3: Mediastinal and hilar lymphadenopathy, likely reactive. Reviewed, dictated and finalized at location [] IMPRESSION: 1. No evidence for pulmonary embolism. 2: Extensive patchy bilateral airspace consolidation which has progressed/devel oped since prior examination, consistent with pneumonia. Edema less favored. 3: Mediastinal and hilar lymphadenopathy, likely reactive.
--- NOTE | 2023-03-18 16:08 | ECG_ITS ---
Measurements Intervals [place] Rate: 99 P: 41 ME: 150 QRS: -23 QRSD: 78 T: -32 QT: 343 QTc: 440 Interpretive Statements SINUS RHYTHM BORDERLINE LEFT AXIS DEVIATION [QRS AXIS < -20] NONSPECIFIC T-WAVE ABNORMALITY ABNORMAL ECG COMPARED TO ECG 02/09/2023 15:49:47 NO SIGNIFICANT CHANGE Electronically Signed On 03-19-2023 13:16:02 CDT by Fareed Ambriz M.D.
[2023-03-18 16:35] LABS: Basophils Absolute Auto 0.1 K/mm3 (0.0-0.1); Basophils Percent Auto 0.5 % (0.2-1.2); Eosinophils Absolute Auto 0.2 K/mm3 (0-0.3); Eosinophils Percent Auto 1.5 % (0-4.4); Hematocrit 37.6 % (37.0-47.0); Hemoglobin 11.2 g/dL (12.0-15.0); Immature Granulocyte Absolute 0.08 K/mm3 (0.00-0.031); Immature Granulocyte Percent A 0.6 % (0-0.5); Lymphocytes Absolute Auto 0.98 K/mm3 (0.9-3.2); Lymphocytes Percent Auto 6.9 % (18.3-44.2); Mean Corpuscular HGB Conc 29.8 g/dl (32-36); Mean Corpuscular Hemoglobin 26.8 pg (26-34); Mean Platelet Volume 9.9 fl (7.4-10.4); Monocytes Absolute Auto 1.1 K/mm3 (0.1-0.6); Monocytes Percent Auto 7.6 % (2.6-8.5); Neutrophils Absolute Auto 11.7 K/mm3 (1.3-6.7); Neutrophils Percent Auto 82.9 % (45.5-73.1); Platelet Count Result 387 k/mm3 (150-375); Red Blood Count 4.18 M/mm3 (4.2-5.4); Red Cell Distribution Width 16.1 % (11.5-14.5); White Blood Count 14.1 K/mm3 (4.5-10.0)
[2023-03-18 16:45] LABS: Alanine Aminotransferase 15 U/L (6-35); Albumin Level 3.5 g/dL (3.5-5.1); Alkaline Phosphatase 129 U/L (38-126); Anion Gap 8 mmol/L (8-16); Aspartate Amino Transferase 24 U/L (14-36); Blood Urea Nitrogen 11 mg/dL (7-17); Calcium 8.4 mg/dL (8.4-10.2); Carbon Dioxide 31 mmol/L (22-30); Chloride 100 mmol/L (98-107); Estimated CRCL calculation 50 ml/min; Estimated Glomerular Filt Rate > 60; Glucose 141 mg/dL (65-110); Potassium 3.6 mmol/L (3.4-5.0); Sodium 139 mmol/L (137-145)
[2023-03-18 17:06] LABS: Alveolar/Arterial O2 Gradient 216.7 mmHg; Base Excess ABG 3.7 mEq/l (+/-2.0); Fractional Inspired Oxygen 44 %; HCO3 ABG 27.4 mEq/l (22.0-26.0); Oxygen Content ABG 14.7 %vol (16.0-22.0); Oxygen Saturation ABG 90.1 % (95.0-100.0); PO2 ABG 53.7 mmHg (80.0-100.0); PO2 FiO2 Ratio Arterial Blood 1.22 %; pH ABG 7.476 (7.350-7.450)
[2023-03-18 17:07] LABS: Hypochromasia 1+ (NORMAL); Ovalocytes 1+ (NORMAL); Platelet Estimate Increased (Adequate)
[2023-03-18 17:08] LABS: Schistocytes None Seen (NORMAL)
[2023-03-18 17:09] LABS: Device NASAL CANNULA; Modified Allen's Test Pass; Site Drawn RIGHT RADIAL
[2023-03-18 17:11] LABS: INR 1.2; Prothrombin Time 15.5 Seconds (11.1-14.7)
[2023-03-18 17:12] LABS: Partial Thromboplastin Time 31.7 SECONDS (22.3-36.8)
--- NOTE | 2023-03-18 17:26 | ED.SOB ---
HPI - SOB/Dyspnea General Chief Complaint: Shortness of Breath/Dyspnea Stated Complaint: SOB x 2 days Time Seen by Provider: 03/18/23 17:12 History of Present Illness HPI Narrative: Patient is a 62-year-old female with a history of interstitial lung disease presenting with shortness of breath. Patient states that she was discharged from the hospital last month on oxygen. States that she was never told the amount to use so she has just been using 3 L. States that she has been increasingly short of breath over the last week. States that she has also had a worsening cough that is productive. States that sometimes she coughs so hard that she almost passes out which is what brought her in today. No chest pain. No numbness or weakness. No fevers, no abdominal pain, nausea or vomiting, leg swelling, diarrhea, dysuria. Related Data Home Medications Medication Instructions Recorded Confirmed cholecalciferol (vitamin D3) 25 1,000 unit PO DAILY 11/12/19 03/18/23 mcg (1,000 unit) capsule sertraline 50 mg tablet 50 mg PO DAILY 02/10/23 03/18/23 tramadol 50 mg tablet 50 mg PO Q6H PRN Pain 03/19/23 03/19/23 Allergies Allergy/AdvReac Type Severity Reaction Status Date / Time guaifenesin Allergy Mild ITCHING Verified 03/18/23 16:32 levofloxacin Allergy Unknown unknown Verified 03/18/23 16:32 Quinolones Allergy Unknown unknown Verified 03/18/23 16:32 Review of Systems Review of Systems: All systems reviewed & are unremarkable except as noted in HPI and below PMFSH Past Medical History Medical History Bronchitis Hyperlipidemia Personal history of nicotine dependence Vitamin D deficiency Surgical History Surgical History History of appendectomy History of hysterectomy History of tubal ligation Family History Family History Mother Hypertension Asthma Social History Social History Social History: Surrogate medical decision maker: Whitney Noelman, mother. Code status: Full code. Smoking status: Former smoker Smoking end date: 03/18/21 Alcohol intake: never Substance use: never Substance use type: does not use Lack of Transportation: No Lack of Food: Never True Current Housing: I Have Housing Concerned About Future Housing: No Difficulty Paying Gas/Electric Bills: No Difficulty Paying for Meds: No Currently Unemployed: No Education: High School Diploma/GED Difficulty w/ Childcare or Family Care: No Spiritual care concerns: No Exam Narrative: GENERAL: Well-appearing, well-nourished, and in no acute distress. Pleasant and cooperative HEAD: Normocephalic, atraumatic. EYES: PERRLA and EOMI. ENT: Nares clear, no rhinorrhea or epistaxis. Mucous membranes dry NECK: Supple. CHEST: Significantly diminished breath sounds bilaterally, no wheezing or crackles HEART: Regular rate and rhythm. Normal peripheral pulses. ABDOMEN: Soft, nontender, nondistended EXTREMITIES: Normal range of motion. No edema. SKIN: Warm, dry, no rash. NEURO: No focal deficits. Alert and oriented x3. PSYCH: Normal mood and affect. Course Vital Signs Vital signs: Vital Signs Temperature 97.9 F 03/18/23 16:11 Pulse Rate 101 H 03/18/23 16:11 Respiratory Rate 20 03/18/23 16:11 Blood Pressure 99/53 L 03/18/23 16:11 Pulse Oximetry 86 L 03/18/23 16:11 Oxygen Delivery Nasal Cannula 03/18/23 16:11 Oxygen Flow Rate 4 03/18/23 16:11 Temperature 97.6 F 03/22/23 17:15 Pulse Rate 90 03/22/23 17:15 Respiratory Rate 18 03/22/23 17:15 Blood Pressure 142/66 H 03/22/23 17:15 Pulse Oximetry 93 03/22/23 17:15 Oxygen Delivery High Flow Therapy with Nasal Cannula 03/22/23 16:00 Oxygen Flow Rate 30 03/22/23 16:00 Fraction of Inspired Oxygen 40 03/22/23 16:
[2023-03-18 17:29] LABS: Oxyhemoglobin 86.9 % THb (90.0-100.0)
[2023-03-18] MEDS: IPRATROPIUM BR 0.02% INH SOLN 0.5 MG/2.5 ML VIAL INHALATION (17:43)
[2023-03-18] MEDS: ALBUTEROL SULFATE NEB 2.5 MG/3 ML INH 10 MG INHALATION (17:43)
[2023-03-18] MEDS: methylPREDNISolone SOD SUCC 125 MG VIAL IV PUSH (17:48)
[2023-03-18] MEDS: SODIUM CHLORIDE 0.9% IV 1,000 ML 999 ML IV CONT (17:48)
[2023-03-18 17:57] LABS: Lactic Acid Reflex 1.3 mmol/L (0.7-2.0)
[2023-03-18 18:23] LABS: Troponin I 0.044 ng/mL (0.000-0.034)
--- NOTE | 2023-03-18 19:17 | PC.NURSE ---
Breathing treatment complete. Pt placed on 4L nasal cannula and oxygen saturation was 83%. Titrated oxygen up to 6L nasal cannula. Saturation increased to 92%. Pt does endorse feeling much better compared to when she came in.
--- NOTE | 2023-03-18 20:15 | PM.IMHP ---
H&P: HPI History of Present Illness Date/Time: 03/18/23 20:15 Chief Complaint: sob Narrative: This is a 62-year-old female with past medical history significant for former tobacco dependence 47 pack year smoking history, chronic cough, hypoxic respiratory failure, recently treated for a combination what appeared to be congestive heart failure and COPD exacerbation, patient found with patchy ground opacity is present since 2007 pulmonology consult was done patient has been to the tanning salon attendant's office in the outpatient setting. When patient left was supposed to be on 2 L of oxygen by nasal cannula at rest and 3 L with activity. Patient presents today with worsening shortness of breath which was the worst today in emergency room patient require her oxygen to be increased to 6 L and received nebulizer treatment. Patient complains of cough productive of white phlegm which is scanty and has had chills unsure above fevers has had night sweats, has not been able to eat well due to shortness of breath has had reduced p.o. intake because of this. Patient denies any nausea, vomiting, abdominal pain, lightheadedness, syncope or near syncope, no leg swelling, no chest pain. Preliminary workup was significant for ABG PH OF 7.47, PCO2 38 PO2 53 A chest x-ray was reported as: EXAMINATION: XR chest 1V portable DATE: 03/18/2023 17:01 INDICATION: Shortness of breath. TECHNIQUE: A single frontal view of the chest was obtained. COMPARISON: Chest single view 02/09/2023, chest CT 02/11/2023 FINDINGS: There are airspace and interstitial opacities throughout the lungs bilaterally. No pleural effusion or pneumothorax. The heart size is normal. IMPRESSION: 1. Stable diffuse lung disease, consistent with chronic interstitial lung disease. Superimposed pulmonary edema or pneumonia cannot be excluded. Review of Systems Review of Systems: SHORTNESS OF BREATH, PRODUCTIVE COUGH OF FALLING SCANTY, night sweats, chills. Constitutional: Constitutional: Reports chills, Reports malaise, Reports night sweats and Reports poor appetite Eyes: Eyes: Denies change in vision ENT: Denies dysphagia and Denies odynophagia Cardiovascular: Cardiovascular: Denies chest pain, Denies lightheadedness, Denies radiating jaw, neck or arm pain and Denies palpitations Respiratory: Respiratory: Reports cough, Reports excessive phlegm production, Reports dyspnea and Reports wheezing Gastrointestinal: Gastrointestinal: Denies abdominal pain, Denies dyspepsia, Denies heartburn, Denies diarrhea, Denies nausea and Denies vomiting Genitourinary: Genitourinary: Denies dysuria Musculoskeletal: Musculoskeletal: Denies myalgias, Denies arthralgias and Denies limited range of motion Integumentary/Breasts: Skin/Breast: Denies rash Neurologic: Denies focal weakness and Denies Sensory deficit (Neuro) Psychiatric: Psychiatric: Reports no additional psychiatric complaints and Reports as per HPI Endocrine: Endocrine: Denies cold intolerance, Denies flushing, Denies heat intolerance, Denies polyphagia, Denies polydipsia and Denies palpitations Hematologic/Lymphatic: Hematologic/Lymphatic: Reports no additional hematologic/lymphatic complaints and Reports as per HPI Allergic/Immunologic: Allergic/Immunologic: Reports no additional allergic/immunologic complaints and Reports as per HPI PMFSH Past Medical History Medical History Bronchitis Hyperlipidemia Personal history of nicotine dependence Vitamin D deficiency Surgical History Surgical History History of appendectomy History of hysterectomy History of tubal ligation Family History Family History Mother Hypertension Asthma Social History Social History Social History: Surrogate medica
--- NOTE | 2023-03-18 20:33 | PC.NURSE ---
Pt had one episode of emesis. Oxygen saturation dropped to 73%. Coached pt to take deep breaths in through her nose and out through her mouth. Oxygen saturation back up to 90% at this time.
[2023-03-18] MEDS: AZITHROMYCIN 500 MG/NS 250 ML 500 MG/250 ML BAG 250 MG IVPB (20:35)
[2023-03-18 20:52] LABS: Troponin I 0.039 ng/mL (0.000-0.034)
--- NOTE | 2023-03-18 22:18 | ADMGEN ---
This patient, Mi Jeffers, was admitted to IMU Room 210-01 at 2155. Patient/family oriented to hospital policies and general routines including ID bracelet, bed and alarms, visiting hours, pain management, procedures, bathroom and other care routines, personal items, smoking policy, room service/diet, and visiting hours. Information on how to activate the Rapid Response Team has been discussed. Patient/Family are encouraged to report perceived risks to care and to ask questions if they do not understand what they are told or what they should do.
[2023-03-18] MEDS: WATER FOR IRRIGATION, STERILE 1,000 ML BOTTLE 1000 ML (23:18)
[2023-03-19] VITALS (29 sets, daily range): BP systolic 117–139; BP diastolic 58–70; PULSE 85–107; RESP 18–22; TEMP 35.6–36.4; O2SAT 80–100
[2023-03-19] MEDS: IPRATROPIUM BR 0.02% INH SOLN 0.5 MG/2.5 ML VIAL INHALATION ×6 (00:36→20:25)
[2023-03-19] MEDS: ALBUTEROL SULFATE NEB 2.5 MG/3 ML INH INHALATION ×6 (00:36→20:25)
[2023-03-19 01:14] LABS: Troponin I 0.044 ng/mL (0.000-0.034)
[2023-03-19] MEDS: SERTRALINE HCL 50 MG TABLET PO (08:40)
[2023-03-19] MEDS: CHOLECALCIFEROL 1,000 UNITS TABLET 1000 UNITS PO (08:40)
--- NOTE | 2023-03-19 09:31 | PM.IMPN ---
Progress Note: A&P Assessment and Plan (1) Acute and chronic respiratory failure with hypoxia: Code(s): J96.21 - Acute and chronic respiratory failure with hypoxia Status: Acute (2) Lung infiltrate: Code(s): R91.8 - Other nonspecific abnormal finding of lung field Status: Acute (3) COPD (chronic obstructive pulmonary disease): Code(s): J44.9 - Chronic obstructive pulmonary disease, unspecified Status: Acute (4) Interstitial lung disease: Code(s): J84.9 - Interstitial pulmonary disease, unspecified Status: Acute Plan Presented with worsening shortness of breath over past week. Associated cough which is productive. Almost passed out because of coughing. Hypoxic in 60s to 70s on her baseline 3 L nasal cannula. Required non-rebreather mask. Lab work revealed leukocytosis of 14,000 ABG 7.47/38/53/27 6 L nasal cannula. Troponin 0.044-0.03 9-0.04 for flat. Positive JOSEPHINE and anti CCP ARCHITECTURE INTERN antibody on 02/11/2023. Negative hypersensitivity panel. Alpha 1 antitrypsin more than 300. Chest x-ray with stable diffuse lung disease consistent with chronic interstitial lung disease. Superimposed pulmonary edema or pneumonia cannot be excluded. 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 Combination of emphysema and chronic interstitial lung disease. History of smoking with total pack years 47. The lung nodule was considered to be related to pneumonia rather than malignancy and was planned to have of follow-up CT scan. Repeat CT planned on 04/12/2023. Rheumatoid nodule is also another possibility. Echo with 60-65% EF grade 1 diastolic dysfunction possible intrapulmonary shunt on bubble study. Similar extensive interstitial changes dated back 2007.. Patient on ceftriaxone and azithromycin. Will get MRSA swab Legionella mycoplasma and pneumococcal. Continue diuresis with Lasix daily. Received a dose of methylprednisolone yesterday. Pulmonary has been consulted. Await their recommendations. Worsening hypoxia will repeat CTA. Check BNP 718 in 02/23 gentle diuresis with 40 IV Lasix Subjective Date/time seen: 03/19/23 09:31 Interval history: Presented with worsening shortness of breath over past week. Associated cough which is productive. Almost passed out because of coughing. Hypoxic in 60s to 70s on her baseline 3 L nasal cannula. Required non-rebreather mask. Lab work revealed leukocytosis of 14,000 ABG 7.47/38/53/27 6 L nasal cannula. Troponin 0.044-0.03 9-0.04 for flat. Positive JOSEPHINE and anti CCP ARCHITECTURE INTERN antibody on 02/11/2023. Negative hypersensitivity panel. Alpha 1 antitrypsin more than 300. Chest x-ray with stable diffuse lung disease consistent with chronic interstitial lung disease. Superimposed pulmonary edema or pneumonia cannot be excluded. 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 Combination of emphysema and chronic interstitial lung disease. History of smoking with total pack years 47. The lung nodule was considered to be related to pneumonia rather than malignancy and was planned to have of follow-up CT scan. Repeat CT planned on 04/12/2023. Rheumatoid nodule is also another possibility. Echo with 60-65% EF grade 1 diastolic dysfunction possible intrapulmonary shunt on bubble study. Similar extensive interstitial changes dated back 2007. Review of Systems Review of Systems: All systems reviewed & are unremarkable except as noted in HPI and below Exam Narrative: GENERAL: Well-appearing, well-nourished, and in no acute distress.? Pleasant and cooperative HEAD: Normocephalic, atraumatic. EYES: PERRLA and EOMI. ENT: Nares clear, no rhinorrhea or epistaxis.? Mucous membran
--- NOTE | 2023-03-19 10:05 | PM.CNPUL ---
Assessment and Plan Assessment and plan (1) Acute and chronic respiratory failure with hypoxia: Code(s): J96.21 - Acute and chronic respiratory failure with hypoxia Status: Acute (2) Interstitial lung disease: Code(s): J84.9 - Interstitial pulmonary disease, unspecified Status: Acute Assessment and Plan: This 62-year-old female has had chronic interstitial lung disease associated with hypoxemic respiratory failure, on supplemental oxygen since previous hospitalization in February of this year. The patient presented with increasing shortness of breath. On chest x-ray there are no new infiltrates. Patient had positive anti CCP antibodies and positive HEAT PUMP INSTALLER antibodies. Given the high specificity of anti CCP antibodies for rheumatoid arthritis, the long interval from the first detection of ILD on chest imaging studies along with the absence of RA symptoms, makes the association of interstitial lung disease with rheumatoid arthritis very unlikely. The pattern on chest CT is not consistent with UIP because of unequal distribution, and relative sparing of the subpleural and basilar region. The CT pattern could be related to chronic hypersensitivity pneumonitis or less likely to fibrotic NSIP. The patient has been exposed to parakeets waste at home more than 20 years ago, which seems to be the only exposure to inhalational agents. Recent worsening of a respiratory failure could be related to lower respiratory tract infection, progression of interstitial lung disease or exacerbation of the fibrotic process. Plan: Will repeat the chest CT to exclude pulmonary embolism and also assess for new infiltrates. Continue with current antibiotic regimen for now. May consider steroids if there is any new infiltrate since previous chest CT that would indicate exacerbation of the fibrotic lung disease. (3) Dyspnea on exertion: Code(s): R06.09 - Other forms of dyspnea Status: Acute (4) Pulmonary nodule: Code(s): R91.1 - Solitary pulmonary nodule Status: Acute History of Present Illness History of Present Illness Consult date: 03/19/23 Chief complaint: COPD Exacerbation w/Pneumonia Narrative: This 62-year-old female with history of interstitial lung disease and hypoxemic respiratory failure presented with increasing shortness of breath. The patient was hospitalized last month with similar complaints and was evaluated by Dr. Fareed Renteria. She was also seen by Dr. Oakes in the outpatient clinic. Detailed history of her presentation during last hospitalization by Dr. Oakes is available and was reviewed. Patient was discharged home on supplemental oxygen and antibiotic. She presented with shortness of breath. Shortness of breath was worse with activities. She did not have any new respiratory symptoms such as fever chills hemoptysis orthopnea cough sputum production or lower extremity edema. Since admission the patient has been treated with a antibiotics for possible lower respiratory tract infection. Earlier today she got out of bed and became very short of breath. Her oxyhemoglobin saturation decreased down to 70% while the patient was receiving supplemental oxygen 50 liters/minute via nasal cannula. She was then placed on non-rebreather mask with saturation coming back up into the normal range. As outlined in Dr. Oakes's evaluation the patient has been exposed to birds waste 1 she was young. Patient could not remember when they got rid of parakeets they had at home. This probably took place in the late . Review previous chest imaging studies showed that chest CT done in 2008 showed interstitial lung disease bilaterally, consisting primarily of ground-glass opacities. On last chest CT she had advanced pulmonary fibrosis with asymmetrical distribution honeycombing, bronchiectasis and ground-glass opacities, mostly in the upper lobes, sparing subpleural region on the right lung. On recent serology she had elevate
[2023-03-19 10:42] LABS: NT Pro B Type Natriuretic Pept 4810 pg/mL (19.9-100)
[2023-03-19] MEDS: FUROSEMIDE INJ 40 MG/4 ML VIAL IV PUSH (11:11)
[2023-03-19] MEDS: traMADol HCL (*CRX) 50 MG TABLET PO ×2 (11:16→20:55)
[2023-03-19 12:24] LABS: Influenza A QL RT-PCR Negative (Negative); Influenza B QL RT-PCR Negative (Negative); RSV RNA, RT-PCR Negative (Negative); SARS-CoV-2 RNA PCR Negative (Negative)
[2023-03-19] MEDS: CEFEPIME 2 GM/NS 50 ML 2 GM/50 ML BAG IVPB (14:26)
[2023-03-19] MEDS: methylPREDNISolone SOD SUCC 125 MG VIAL 60 MG IV PUSH ×2 (14:27→21:50)
--- NOTE | 2023-03-19 15:18 | PC.NURSE ---
Spoke with Dr. Simeon regarding patient's oxygen requirements. Pt continues to drop oxygenation sats into 70's with any activity while on 15L HFNC. Pt denies any shortness of breath or difficulty breathing, but upon assessment pt is now using accessory muscles to breathe. New order for Vapotherm, with a new baseline ABG to be obtained 2 hours after pt is placed on Vapotherm.
[2023-03-19 17:37] LABS: Alveolar/Arterial O2 Gradient 279.2 mmHg; Base Excess ABG 4.7 mEq/l (+/-2.0); Fractional Inspired Oxygen 55 %; HCO3 ABG 28.3 mEq/l (22.0-26.0); Oxygen Content ABG 16.3 %vol (16.0-22.0); Oxygen Saturation ABG 95.3 % (95.0-100.0); PCO2 ABG 38.3 mmHg (35.0-45.0); PO2 ABG 70.3 mmHg (80.0-100.0); PO2 FiO2 Ratio Arterial Blood 1.28 %; Total Hemoglobin 12.4 g/dL (12.0-18.0); pH ABG 7.486 (7.350-7.450)
[2023-03-19 17:38] LABS: Site Drawn RIGHT BRACHIAL
[2023-03-19 17:39] LABS: Device HIGH FLOW NASAL CANN
[2023-03-19] MEDS: AZITHROMYCIN 500 MG/NS 250 ML 500 MG/250 ML BAG 250 MG IVPB (20:17)
[2023-03-20] VITALS (29 sets, daily range): BP systolic 110–137; BP diastolic 58–75; PULSE 71–99; RESP 14–24; TEMP 36.3–36.6; O2SAT 91–100
[2023-03-20] MEDS: CEFEPIME 2 GM/NS 50 ML 2 GM/50 ML BAG IVPB ×2 (00:18→13:00)
[2023-03-20] MEDS: IPRATROPIUM BR 0.02% INH SOLN 0.5 MG/2.5 ML VIAL INHALATION ×5 (00:32→20:25)
[2023-03-20] MEDS: ALBUTEROL SULFATE NEB 2.5 MG/3 ML INH INHALATION ×5 (00:33→20:25)
[2023-03-20 04:06] LABS: Basophils Percent Auto 0.1 % (0.2-1.2); Hematocrit 32.8 % (37.0-47.0); Hemoglobin 10.1 g/dL (12.0-15.0); Immature Granulocyte Absolute 0.31 K/mm3 (0.00-0.031); Immature Granulocyte Percent A 1.5 % (0-0.5); Lymphocytes Absolute Auto 0.85 K/mm3 (0.9-3.2); Lymphocytes Percent Auto 4.2 % (18.3-44.2); Mean Corpuscular HGB Conc 30.8 g/dl (32-36); Mean Corpuscular Hemoglobin 27.2 pg (26-34); Mean Corpuscular Volume 88.2 fl (80-100); Mean Platelet Volume 10.1 fl (7.4-10.4); Monocytes Absolute Auto 0.9 K/mm3 (0.1-0.6); Monocytes Percent Auto 4.3 % (2.6-8.5); Neutrophils Percent Auto 89.9 % (45.5-73.1); Nucleated Red Blood Cells Perc 0.1 % (0.0-0.2); Platelet Count Result 376 k/mm3 (150-375); Red Blood Count 3.72 M/mm3 (4.2-5.4); Red Cell Distribution Width 15.9 % (11.5-14.5); White Blood Count 20.1 K/mm3 (4.5-10.0)
[2023-03-20 04:20] LABS: Alanine Aminotransferase 18 U/L (6-35); Albumin Level 3.4 g/dL (3.5-5.1); Alkaline Phosphatase 123 U/L (38-126); Anion Gap 3 mmol/L (8-16); Aspartate Amino Transferase 30 U/L (14-36); Bilirubin,Total 0.5 mg/dL (0.2-1.3); Blood Urea Nitrogen 19 mg/dL (7-17); Calcium 8.6 mg/dL (8.4-10.2); Carbon Dioxide 36 mmol/L (22-30); Chloride 99 mmol/L (98-107); Estimated CRCL calculation 58 ml/min; Estimated Glomerular Filt Rate > 60; Glucose 167 mg/dL (65-110); Magnesium 2.6 mg/dL (1.6-2.3); Potassium 3.5 mmol/L (3.4-5.0); Sodium 138 mmol/L (137-145)
[2023-03-20 05:10] LABS: Alveolar/Arterial O2 Gradient 279.6 mmHg; Base Excess ABG 7.4 mEq/l (+/-2.0); Fractional Inspired Oxygen 55 %; HCO3 ABG 31.7 mEq/l (22.0-26.0); Oxygen Content ABG 14.7 %vol (16.0-22.0); Oxygen Saturation ABG 93.7 % (95.0-100.0); Oxyhemoglobin 91.8 % THb (90.0-100.0); PCO2 ABG 43.6 mmHg (35.0-45.0); PO2 ABG 64.1 mmHg (80.0-100.0); PO2 FiO2 Ratio Arterial Blood 1.17 %; Total Hemoglobin 11.4 g/dL (12.0-18.0)
[2023-03-20 05:13] LABS: Device HIGH FLOW THERAPY; Modified Allen's Test Pass; Site Drawn LEFT RADIAL
[2023-03-20] MEDS: methylPREDNISolone SOD SUCC 125 MG VIAL 60 MG IV PUSH ×3 (06:57→21:03)
--- NOTE | 2023-03-20 11:56 | PCRCNOTE ---
At 1000, RN called RT stating patient desating. Per RN, patient SpO2 dropped while talking on the phone. RT assessed patient. Patient was on a Vapotherm 45L 70% plus a NRBM at 100%, 15L. Patient caught her breath, SpO2 increased. RT titrated patient to Vapotherm 45L 100%. RN aware.
[2023-03-20] MEDS: VANCOMYCIN 1,000 MG/NS 250 ML 1,000 MG/250 ML BAG 250 MG IVPB (12:00)
[2023-03-20] MEDS: CHOLECALCIFEROL 1,000 UNITS TABLET 1000 UNITS PO (14:18)
[2023-03-20] MEDS: SERTRALINE HCL 50 MG TABLET PO (14:18)
[2023-03-20] MEDS: FUROSEMIDE INJ 40 MG/4 ML VIAL IV PUSH (14:18)
--- NOTE | 2023-03-20 14:43 | PM.PNPUL ---
Progress Note: A&P Assessment and Plan (1) Acute and chronic respiratory failure with hypoxia: Code(s): J96.21 - Acute and chronic respiratory failure with hypoxia Status: Acute Assessment and Plan: She uses O2 at home, 5 L/min, increased at admission. Has emphysema and ILD. She is now on AirVo, pO2 is not improving much with varying amounts of O2. This suggests that she might have a shunt. She feels better, does not have sputum, no hemoptysis. Her BNP increased this admission compared to late February, could be cardiac or just demand ischemia with worsening respiratory failure. Chest CT interpretation favors infection such as pneumonia over pulmonary edema. (2) Interstitial lung disease: Code(s): J84.9 - Interstitial pulmonary disease, unspecified Status: Acute Assessment and Plan: She has chronic interstitial lung disease associated with hypoxemic respiratory failure, on supplemental oxygen since previous hospitalization in February of this year, increased shortness of breath; no new infiltrates.? Patient had positive anti CCP antibodies and positive SPEECH SCIENTIST antibodies.? Given the high specificity of anti CCP antibodies for rheumatoid arthritis, the long interval from the first detection of ILD on chest imaging studies along with the absence of RA symptoms, makes the association of interstitial lung disease with rheumatoid arthritis very unlikely.? The pattern on chest CT is not consistent with UIP because of unequal distribution, and relative sparing of the subpleural and basilar region.? The CT pattern could be related to chronic hypersensitivity pneumonitis or less likely to fibrotic NSIP.? The patient has been exposed to parakeets waste at home more than 20 years ago, which seems to be the only exposure to inhalational agents.? Recent worsening of a respiratory failure could be related to lower respiratory tract infection, progression of interstitial lung disease or exacerbation of the fibrotic process. Repeat chest CT yesterday showed no PE. She feels better on steroids. She also has the RLL mass 3.5 x 2.2 cm which is either rounded atelectasis, or cancer. She already scheduled for repeat chest CT 04/12/23. Plan Continue antibiotics: azithromycin, ceftriaxone continue solumedrol 60 mg IV Q 8 hours continue O2 using AirVo to maintain saturations > 90% Urine antigens are pending, chest Ct in april for RLL mass v rounded atelectasis Subjective Date/time seen: 03/20/23 14:43 Interval history: Hospital Follow up visit: Mi Jeffers is a 62-year-old female interstitial lung disease and hypoxemic respiratory failure presented with increasing shortness of breath.? She has emphysema, ILD with assymetric apical scarring, chronic O2 use, hx of tobacco. 03/19/23 The patient was hospitalized last month with similar complaints and was evaluated by Dr. Fareed Renteria, was seen in the clinic. Detailed history of her presentation during last hospitalization by Dr. Oakes is available and was reviewed.? Patient was discharged home on supplemental oxygen and antibiotic.? She presented with shortness of breath.? Shortness of breath was worse with activities.? She did not have any new respiratory symptoms such as fever chills hemoptysis orthopnea cough sputum production or lower extremity edema.? Since admission the patient has been treated with a antibiotics for possible lower respiratory tract infection.? Earlier today she got out of bed and became very short of breath.? Her oxyhemoglobin saturation decreased down to 70% while the patient was receiving supplemental oxygen 50 liters/minute via nasal cannula.? She was then placed on non-rebreather mask with saturation coming back up into the normal range.?Remote bird exposure, bird's waste when she was young.? Patient could not remember when they got rid of parakeets the
[2023-03-20] MEDS: AZITHROMYCIN 500 MG/NS 250 ML 500 MG/250 ML BAG 250 MG IVPB (21:04)
[2023-03-21] VITALS (30 sets, daily range): BP systolic 106–136; BP diastolic 53–70; PULSE 53–92; RESP 16–24; TEMP 36.2–36.6; O2SAT 92–98
[2023-03-21] MEDS: IPRATROPIUM BR 0.02% INH SOLN 0.5 MG/2.5 ML VIAL INHALATION ×6 (00:10→19:54)
[2023-03-21] MEDS: ALBUTEROL SULFATE NEB 2.5 MG/3 ML INH INHALATION ×6 (00:10→19:54)
[2023-03-21] MEDS: CEFEPIME 2 GM/NS 50 ML 2 GM/50 ML BAG IVPB ×2 (01:12→12:20)
[2023-03-21 04:35] LABS: Basophils Percent Auto 0.1 % (0.2-1.2); Hematocrit 34.3 % (37.0-47.0); Hemoglobin 10.4 g/dL (12.0-15.0); Immature Granulocyte Absolute 0.16 K/mm3 (0.00-0.031); Immature Granulocyte Percent A 0.9 % (0-0.5); Lymphocytes Absolute Auto 1.07 K/mm3 (0.9-3.2); Lymphocytes Percent Auto 5.9 % (18.3-44.2); Mean Corpuscular HGB Conc 30.3 g/dl (32-36); Mean Corpuscular Hemoglobin 26.8 pg (26-34); Mean Corpuscular Volume 88.4 fl (80-100); Mean Platelet Volume 10.2 fl (7.4-10.4); Monocytes Percent Auto 5.7 % (2.6-8.5); Neutrophils Absolute Auto 15.7 K/mm3 (1.3-6.7); Neutrophils Percent Auto 87.4 % (45.5-73.1); Nucleated Red Blood Cells Perc 0.1 % (0.0-0.2); Platelet Count Result 435 k/mm3 (150-375); Red Blood Count 3.88 M/mm3 (4.2-5.4); Red Cell Distribution Width 15.6 % (11.5-14.5)
[2023-03-21 04:44] LABS: Alanine Aminotransferase 25 U/L (6-35); Albumin Level 3.3 g/dL (3.5-5.1); Alkaline Phosphatase 122 U/L (38-126); Aspartate Amino Transferase 34 U/L (14-36); Bilirubin,Total 0.4 mg/dL (0.2-1.3); Blood Urea Nitrogen 31 mg/dL (7-17); Calcium 8.6 mg/dL (8.4-10.2); Carbon Dioxide > 40 mmol/L (22-30); Chloride 95 mmol/L (98-107); Estimated CRCL calculation 58 ml/min; Estimated Glomerular Filt Rate > 60; Glucose 159 mg/dL (65-110); Magnesium 2.6 mg/dL (1.6-2.3); Potassium 3.3 mmol/L (3.4-5.0); Sodium 138 mmol/L (137-145)
[2023-03-21] MEDS: methylPREDNISolone SOD SUCC 125 MG VIAL 60 MG IV PUSH ×3 (05:40→22:00)
[2023-03-21] MEDS: CHOLECALCIFEROL 1,000 UNITS TABLET 1000 UNITS PO (09:55)
[2023-03-21] MEDS: FUROSEMIDE INJ 40 MG/4 ML VIAL IV PUSH (09:55)
[2023-03-21] MEDS: SERTRALINE HCL 50 MG TABLET PO (09:55)
[2023-03-21] MEDS: POTASSIUM CHLORIDE 20 MEQ ER TABLET 40 MEQ PO (09:55)
--- NOTE | 2023-03-21 10:05 | PM.IMPN ---
Progress Note: A&P Assessment and Plan (1) Acute and chronic respiratory failure with hypoxia: Code(s): J96.21 - Acute and chronic respiratory failure with hypoxia Status: Acute (2) Lung infiltrate: Code(s): R91.8 - Other nonspecific abnormal finding of lung field Status: Acute (3) COPD (chronic obstructive pulmonary disease): Code(s): J44.9 - Chronic obstructive pulmonary disease, unspecified Status: Acute (4) Interstitial lung disease: Code(s): J84.9 - Interstitial pulmonary disease, unspecified Status: Acute Plan Presented with worsening shortness of breath over past week. Associated cough which is productive. Almost passed out because of coughing. Hypoxic in 60s to 70s on her baseline 3 L nasal cannula. Required non-rebreather mask. Lab work revealed leukocytosis of 14,000 ABG 7.47/38/53/27 6 L nasal cannula. Troponin 0.044-0.03 9-0.04 for flat. Positive JOSEPHINE and anti CCP SIDE SEAM ENVELOPE MACHINE OPERATOR antibody on 02/11/2023. Negative hypersensitivity panel. Alpha 1 antitrypsin more than 300. Chest x-ray with stable diffuse lung disease consistent with chronic interstitial lung disease. Superimposed pulmonary edema or pneumonia cannot be excluded. 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 Combination of emphysema and chronic interstitial lung disease. History of smoking with total pack years 47. The lung nodule was considered to be related to pneumonia rather than malignancy and was planned to have of follow-up CT scan. Repeat CT planned on 04/12/2023. Rheumatoid nodule is also another possibility. Echo with 60-65% EF grade 1 diastolic dysfunction possible intrapulmonary shunt on bubble study. Similar extensive interstitial changes dated back 2007.. Patient on ceftriaxone and azithromycin. Will get MRSA swab Legionella mycoplasma and pneumococcal. Continue diuresis with Lasix daily. Received a dose of methylprednisolone yesterday. Pulmonary has been consulted. Await their recommendations. Worsening hypoxia will repeat CTA. Check BNP 718 in 02/23 gentle diuresis with 40 IV Lasix 03/20/2023:Presented with worsening shortness of breath over past week. Associated cough which is productive. Almost passed out because of coughing. Hypoxic in 60s to 70s on her baseline 3 L nasal cannula. Required non-rebreather mask. Lab work revealed leukocytosis of 14,000 ABG 7.47/38/53/27 6 L nasal cannula. Troponin 0.044-0.03 9-0.04 for flat. Positive JOSEPHINE and anti CCP SIDE SEAM ENVELOPE MACHINE OPERATOR antibody on 02/11/2023. Negative hypersensitivity panel. Alpha 1 antitrypsin more than 300. Chest x-ray with stable diffuse lung disease consistent with chronic interstitial lung disease. Superimposed pulmonary edema or pneumonia cannot be excluded. 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 Combination of emphysema and chronic interstitial lung disease. History of smoking with total pack years 47. The lung nodule was considered to be related to pneumonia rather than malignancy and was planned to have of follow-up CT scan. Repeat CT planned on 04/12/2023. Rheumatoid nodule is also another possibility. Echo with 60-65% EF grade 1 diastolic dysfunction possible intrapulmonary shunt on bubble study. Similar extensive interstitial changes dated back 2007.. Patient on ceftriaxone and azithromycin. MRSA swab pending. Legionella mycoplasma and pneumococcal ordered. Continue diuresis with Lasix daily. Received a dose of methylprednisolone yesterday. Started on methylprednisolone scheduled for possible I LD flare-up CTA negative for PE but shows diffuse bilateral ground-glass opacities. ARDS versus pneumonia versus pulmonary edema versus I LD flare. Pulm
--- NOTE | 2023-03-21 10:29 | PCRCNOTE ---
RT checked on patient. Patient SpO2 was 85-87% on Vapotherm 45L 50%. RT instructed patient to breath in through her nose and not through her mouth. Pulse ox position checked and SpO2 waveform good. RT waited about 10 minutes to see if SpO2 would increase. SpO2 did not increase, RT increased the FiO2 to 60%. RN aware.
[2023-03-21 11:50] LABS: Vancomycin Trough 8.3 ug/mL (10.0-20.0)
[2023-03-21] MEDS: AZITHROMYCIN 500 MG/NS 250 ML 500 MG/250 ML BAG 250 MG IVPB (20:22)
[2023-03-22] VITALS (21 sets, daily range): BP systolic 123–142; BP diastolic 62–72; PULSE 57–93; RESP 18–22; TEMP 36.1–36.6; O2SAT 91–100
[2023-03-22] MEDS: CEFEPIME 2 GM/NS 50 ML 2 GM/50 ML BAG IVPB ×2 (00:02→13:00)
[2023-03-22] MEDS: IPRATROPIUM BR 0.02% INH SOLN 0.5 MG/2.5 ML VIAL INHALATION ×4 (00:10→13:13)
[2023-03-22] MEDS: ALBUTEROL SULFATE NEB 2.5 MG/3 ML INH INHALATION ×4 (00:10→13:13)
[2023-03-22 05:25] LABS: Basophils Percent Auto 0.1 % (0.2-1.2); Eosinophils Percent Auto 0.1 % (0-4.4); Hematocrit 37.8 % (37.0-47.0); Immature Granulocyte Absolute 0.11 K/mm3 (0.00-0.031); Immature Granulocyte Percent A 0.7 % (0-0.5); Lymphocytes Absolute Auto 1.26 K/mm3 (0.9-3.2); Lymphocytes Percent Auto 8.2 % (18.3-44.2); Mean Corpuscular HGB Conc 29.1 g/dl (32-36); Mean Corpuscular Hemoglobin 26.2 pg (26-34); Mean Platelet Volume 10.6 fl (7.4-10.4); Monocytes Percent Auto 6.5 % (2.6-8.5); Neutrophils Percent Auto 84.4 % (45.5-73.1); Platelet Count Result 389 k/mm3 (150-375); Red Cell Distribution Width 15.5 % (11.5-14.5); White Blood Count 15.4 K/mm3 (4.5-10.0)
[2023-03-22 05:43] LABS: Alanine Aminotransferase 25 U/L (6-35); Albumin Level 3.4 g/dL (3.5-5.1); Alkaline Phosphatase 118 U/L (38-126); Anion Gap 4 mmol/L (8-16); Aspartate Amino Transferase 29 U/L (14-36); Bilirubin,Total 0.6 mg/dL (0.2-1.3); Blood Urea Nitrogen 35 mg/dL (7-17); Calcium 8.4 mg/dL (8.4-10.2); Carbon Dioxide 32 mmol/L (22-30); Chloride 99 mmol/L (98-107); Estimated CRCL calculation 68 ml/min; Estimated Glomerular Filt Rate > 60; Glucose 145 mg/dL (65-110); Magnesium 2.8 mg/dL (1.6-2.3); Potassium 4.4 mmol/L (3.4-5.0); Sodium 135 mmol/L (137-145)
[2023-03-22] MEDS: methylPREDNISolone SOD SUCC 125 MG VIAL 60 MG IV PUSH ×2 (06:11→13:01)
[2023-03-22] MEDS: SERTRALINE HCL 50 MG TABLET PO (10:01)
[2023-03-22] MEDS: FUROSEMIDE INJ 40 MG/4 ML VIAL IV PUSH (10:01)
[2023-03-22] MEDS: CHOLECALCIFEROL 1,000 UNITS TABLET 1000 UNITS PO (10:01)
--- NOTE | 2023-03-22 10:42 | PM.PNPUL ---
Progress Note: A&P Assessment and Plan (1) Interstitial lung disease: Code(s): J84.9 - Interstitial pulmonary disease, unspecified Status: Acute Assessment and Plan: 62-year-old with a history of chronic cough, clubbing since age 33, history of tobacco (47 PY quit 2020), chronic alveolar and interstitial infiltrates on CT scan from 12/01/2007 and 12/07/2008 [facility] with episodes of SOB and I saw her previously in consultation on 02/11/2023. Patient states she was healthy as a young child in through her teenage years.? In her 30s she started to have episodes of bronchitis with cough and wheezing requiring inhalers, antibiotics and prednisone 1 time every 3-4 years and her last episode was approximately 10 years ago.? In her 40s she started having SOB with walking but no rest SOB.? She had a chronic cough from her 30s onward and noticed that her fingers were large at about age 33. ?Patient smoked 1 pack of cigarettes a day from age [age] (quit 2020) for a total of 47 pack years.?She was exposed to secondhand smoke through her until 2014 and was exposed to secondhand smoke from both parents as a child.? 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 ?Patient denies arthritis, rashes, medicines that would lead to pulmonary fibrosis, chemotherapy, radiation therapy, cancer.? Patient has no family members with pulmonary fibrosis.? She has a mother with COPD who was a smoker.? Patient had parakeets in her 20s and had no respiratory difficulty after she had the parakeets.? Patient has no other exposures to birds or exotic pets.? Patient does not take frequent hot tub exposure. 02/11/2023:?Rheumatoid factor 18.8, normal less than 12.? Anti CCP antibody? positive at greater than 250,? reference less than 20, greater than 59 is a strong positive, CHEMIST FOOD antibody? positive at 2.6, reference range less than 1.? Tan antibody negative, Tan CHEMIST FOOD IgG antibody negative, anti DNA antibody negative, chromatin antibody negative, Anca screen negative, hypersensitivity pneumonitis panel negative, CRP 8.2, CPK 55, aldolase 7.1, negative.? myomarker 3+ panel not collected. I saw her in the outpatient pulmonary clinic on 03/11/2023 and at that time the patient was wearing 2 L at rest and with ambulation and room air at night and she was able to perform her normal activities of daily living and stated that her dyspnea on exertion had improved. She had no history of rheumatoid arthritis and no joint deformities. PFTs and repeat CT scan were ordered and referral to [facility] interstitial lung disease and rheumatology clinics were made. Patient tells me that she has appointments in June of 2023. [facility] with worsening shortness of breath and hypoxic respiratory failure. Her CT angiogram of the chest is negative for PE but shows progressive ground-glass opacities without focal consolidation or honeycombing. Patient has been treated with ceftriaxone on 03/18, azithromycin since 03/18, cefepime started 03/19 and vancomycin started 03/19. Patient has been on Solu-Medrol 60 mg q.8 hours started 03/18. on 03/19 the patient required high-flow nasal cannula therapy 45 L and 50% FiO2 03/22 Patient states that at rest she is breathing 90% back to her baseline but still has severe dyspnea on exertion. She denies fever, chills, rigors, phlegm production or hemoptysis. Currently the patient is on 40 L and 45% FiO2 per Vapotherm with saturations 98% at rest but with sitting up in bed her saturations decreased to 78%. White blood cell count is 15.4, creatinine is 0.5. Total diuresis since admission is 1.2 L. chest x-ray today with decreased lung volumes, diffuse interstitial alveolar infiltrates with no change from 03/20/2023. Plan: Since admission patient has had some clinical improvement at rest but no i
[2023-03-22] MEDS: LIDOCAINE HCL 1% PF INJ 5 ML VIAL INFILTRATE (11:15)
[2023-03-22] MEDS: polyethylene glycoL 3350 17 GM POWD.PACK PO (13:00)
[2023-03-22] MEDS: DOCUSATE SODIUM 100 MG CAPSULE PO (13:00)
[2023-03-22] MEDS: CENTRAL LINE FLUSH 10 ML IV PUSH (13:01)
--- NOTE | 2023-03-22 13:05 | PCCCNOTE ---
On 03/22/23, the student, [Otilia Lang], provided care and completed [facility] documentation on this patient. I have reviewed the student's documentation and agree with the findings.
--- NOTE | 2023-03-22 14:30 | P.PNIM_ITS ---
Progress Note: A&P Assessment and Plan (1) Acute and chronic respiratory failure with hypoxia: Code(s): J96.21 - Acute and chronic respiratory failure with hypoxia Status: Acute (2) Lung infiltrate: Code(s): R91.8 - Other nonspecific abnormal finding of lung field Status: Acute (3) COPD (chronic obstructive pulmonary disease): Code(s): J44.9 - Chronic obstructive pulmonary disease, unspecified Status: Acute (4) Interstitial lung disease: Code(s): J84.9 - Interstitial pulmonary disease, unspecified Status: Acute Plan Presented with worsening shortness of breath over past week. Associated cough which is productive. Almost passed out because of coughing. Hypoxic in 60s to 70s on her baseline 3 L nasal cannula. Required non-rebreather mask. Lab work revealed leukocytosis of 14,000 ABG 7.47/38/53/27 6 L nasal cannula. Troponin 0.044-0.03 9-0.04 for flat. Positive JOSEPHINE and anti CCP SQUARE SHEAR OPERATOR antibody on 02/11/2023. Negative hypersensitivity panel. Alpha 1 antitrypsin more than 300. Chest x-ray with stable diffuse lung disease consistent with chronic interstitial lung disease. Superimposed pulmonary edema or pneumonia cannot be excluded. 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 Combination of emphysema and chronic interstitial lung disease. History of smoking with total pack years 47. The lung nodule was considered to be related to pneumonia rather than malignancy and was planned to have of follow-up CT scan. Repeat CT planned on 04/12/2023. Rheumatoid nodule is also another possibility. Echo with 60-65% EF grade 1 diastolic dysfunction possible intrapulmonary shunt on bubble study. Similar extensive interstitial changes dated back 2007.. Patient on ceftriaxone and azithromycin. Will get MRSA swab Legionella mycoplasma and pneumococcal. Continue diuresis with Lasix daily. Received a dose of methylprednisolone yesterday. Pulmonary has been consulted. Await their recommendations. Worsening hypoxia will repeat CTA. Check BNP 718 in 02/23 gentle diuresis with 40 IV Lasix 03/20/2023:Presented with worsening shortness of breath over past week. Associated cough which is productive. Almost passed out because of coughing. Hypoxic in 60s to 70s on her baseline 3 L nasal cannula. Required non- rebreather mask. Lab work revealed leukocytosis of 14,000 ABG 7.47/38/53/27 6 L nasal cannula. Troponin 0.044-0.03 9-0.04 for flat. Positive JOSEPHINE and anti CCP SQUARE SHEAR OPERATOR antibody on 02/11/2023. Negative hypersensitivity panel. Alpha 1 antitrypsin more than 300. Chest x-ray with stable diffuse lung disease consistent with chronic interstitial lung disease. Superimposed pulmonary edema or pneumonia cannot be excluded. 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 Combination of emphysema and chronic interstitial lung disease. History of smoking with total pack years 47. The lung nodule was considered to be related to pneumonia rather than malignancy and was planned to have of follow-up CT scan. Repeat CT planned on 04/12/2023. Rheumatoid nodule is also another possibility. Echo with 60-65% EF grade 1 diastolic dysfunction possible intrapulmonary shunt on bubble study. Similar extensive interstitial changes dated back 2007.. Patient on ceftriaxone and azithromycin. MRSA swab pending. Legionella mycoplasma and pneumococcal ordered. Continue diuresis with Lasix daily. Received a dose of methylprednisolone yes
--- NOTE | 2023-03-22 17:37 | PM.TDS ---
Transfer Discharge Sum: Prov Provider Date of admission: 03/18/23 20:48 Primary care physician: Fareed Albarado MD Admitting clinician: Ashley Skinner MD Consults: 03/18/23 20:49 Consult to Physician Routine Comment: Consulting Provider: Partha Whelan Reason for consultation: COPD exacerbation, pneumonia, chronic interstitial lung dz Has provider been notified: Yes DS: Admitting Diagnosis Discharge Date 03/22/23 Admitting Diagnosis Shortness of breath DS: Discharge Diagnosis Discharge Diagnosis (1) Acute and chronic respiratory failure with hypoxia: Code(s): J96.21 - Acute and chronic respiratory failure with hypoxia Status: Acute (2) Lung infiltrate: Code(s): R91.8 - Other nonspecific abnormal finding of lung field Status: Acute (3) COPD (chronic obstructive pulmonary disease): Code(s): J44.9 - Chronic obstructive pulmonary disease, unspecified Status: Acute (4) Interstitial lung disease: Code(s): J84.9 - Interstitial pulmonary disease, unspecified Status: Acute Transfer Discharge Sum: Med Medications Active and Home Medications: Home Medications cholecalciferol (vitamin D3) 25 mcg (1,000 unit) capsule 1,000 unit PO DAILY 11/12/19 [History Confirmed 03/18/23] sertraline 50 mg tablet 50 mg PO DAILY 02/10/23 [History Confirmed 03/18/23] tramadol 50 mg tablet 50 mg PO Q6H PRN Pain 03/19/23 [History Confirmed 03/19/23] Transfer Discharge Sum: Hosp Hospital Course Hospital course: Mi Jeffers is a 62 year old female who Presented with worsening shortness of breath over past week.? Associated cough which is productive.? Almost passed out because of coughing.? Hypoxic in 60s to 70s on her baseline 3 L nasal cannula.? Required non-rebreather mask.? Lab work revealed leukocytosis of 14,000 ABG 7.47/38/53/27 6 L nasal cannula.? Troponin 0.044-0.03 9-0.04 for flat.? Positive JOSEPHINE and anti CCP NETWORK INTERNSHIP antibody on 02/11/2023.? Negative hypersensitivity panel.? Alpha 1 antitrypsin more than 300.? Chest x-ray with stable diffuse lung disease consistent with chronic interstitial lung disease.? Superimposed pulmonary edema or pneumonia cannot be excluded.? 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 Combination of emphysema and chronic interstitial lung disease.? History of smoking with total pack years 47.? The lung nodule was considered to be related to pneumonia rather than malignancy and was planned to have of follow-up CT scan.? Rheumatoid nodule is also another possibility.? Echo with 60-65% EF grade 1 diastolic dysfunction possible intrapulmonary shunt on bubble study.? Similar extensive interstitial changes dated back 2007..? Patient on ceftriaxone and azithromycin.? MRSA swab pending.? Legionella mycoplasma and pneumococcal ordered.? Continue diuresis with Lasix daily.? Received a dose of methylprednisolone yesterday.? Started on methylprednisolone scheduled for possible I LD flare-up CTA negative for PE but shows diffuse bilateral ground-glass opacities.? ARDS versus pneumonia versus pulmonary edema versus I LD flare.? Pulmonary on board.? Continue diuresis steroid IV antibiotics as ordered.? BNP came back markedly elevated at 5000.? Was 718 on 02/23.? Chest x-ray repeat similar..? continue taper oxygen as tolerated.? Discussed with Pulmonary.? Need to see higher level facility at [facility] to be evaluated by interstitial lung disease specialist and manager legal.? Placed a call to [facility] ED and discussed with blood donor recruiter supervisor.? Patient was eventually transferred to [facility] the 3 Time Spent with Patient Time attestation: Total time spent providing and/or coordinating transfer services: Exam Narrative: GENERAL: Well-appearing, well-nourished, and in no acute distress.? Mayelin
--- NOTE | 2023-03-22 19:33 | PC.NURSE ---
Patient left floor with [facility] staff at 1720. Patient transferred to [facility], room 8308 bed 1, report called to Joanie RATLIFF. Vital signs prior to patient leaving floor: blood pressure 142/66, temperature 97.6, pulse 90, pulse ox 93 % on bipap settings 14/7 r 12 6L oxygen. Patient transitioned to [facility] bipap, and oxygen saturation was 96% when patient left IMU. Patient denied shortness of breath, chest pain, or discomfort at the time of discharge.
[2023-03-23 23:20] LABS: Pneumococcal Antigen Urine Not Detected (Not Detected)
[2023-03-25 02:24] LABS: Legionella pneumophila Ag Ur Not Detected (Not Detected)
[2023-03-25 14:58] LABS: Mycoplasma IgM Antibody Titer 65 U/mL (<770)
== END 2023-03-22 17:19 | disposition short-term general hospital (02) | DRG 196 ==
LOC: ANHED 18:19 → ANHIMU 21:33 → ANHICU 03-25 08:51 → ANHIMU 03-25 08:51
PROVIDERS: Internal Medicine Pulmonary Disease; Admitting Provider Internal Medicine; Emergency Provider Emergency Medicine; PCP Emergency Medicine; Visit Provider Internal Medicine
DX: J84.9 Interstitial pulmonary disease, unspecified (principal); J18.9 Pneumonia, unspecified organism; J96.21 Acute and chronic respiratory failure with hypoxia; J44.0 Chronic obstructive pulmonary disease with (acute) lower respiratory infection; J81.1 Chronic pulmonary edema; R76.0 Raised antibody titer; Z20.822 Contact with and (suspected) exposure to COVID-19; E78.5 Hyperlipidemia, unspecified; Z87.891 Personal history of nicotine dependence; Z90.49 Acquired absence of other specified parts of digestive tract; Z90.710 Acquired absence of both cervix and uterus
CPT/HCPCS: 36415; 36569; 36600; 71045; 71275; 80053; 80202; 82805; 83605; 83735; 83880; 84484; 85025; 85610; 85730; 86738; 87040; 87081; 87449; 87637; 87899; 93005; 94640; 96361; 96374; 99285; A9270; C1751; J0456; J0692; J0696; J1940; J2930; J3370; J7030; Q9967